=== PATIENT | male | born 1955 | race Caucasian/White ===

== ENCOUNTER 2020-08-05 10:51 | Emergency (ER) | payer MEDICARE, SELFPAY ==
[2020-08-05] VITALS (41 sets, daily range): BP systolic 87–120; BP diastolic 61–91; PULSE 57–82; RESP 15–30; TEMP 35.8; O2SAT 90–100
--- NOTE | ~2020-08-05 | XR_ITS ---
EXAMINATION: XR chest 2V DATE: 08/05/2020 11:42 INDICATION: Defibrillator discharge TECHNIQUE: Frontal and lateral views of the chest are obtained COMPARISON: 03/16/2019 FINDINGS: The lungs are free of acute opacities. There is no pleural effusion or pneumothorax. The ca rdiomediastinal silhouette is stable. A dual-lead cardiac pacemaker of the left chest wall ends with leads in expected locations. There is moderate thoracic spondylosis. IMPRESSION: 1. No acute cardiopulmonary abnormality. Reviewed, dictated and finalized at location A. LING TANK OPERATOR
--- NOTE | 2020-08-05 10:56 | ED.ARRPALP ---
HPI - Arrhythmia/Palpitations General Chief Complaint: Arrhythmia/Palpitations Stated Complaint: Defib. Shocking Patient Time Seen by Provider: 08/05/20 10:55 Source: patient History of Present Illness HPI narrative: 65-year-old male presents to emergency department after defibrillator has gone off multiple times. Patient states he was called yesterday by his boiler coverer helper's nurse, who stated patient's defibrillator went off twice yesterday. He was also informed by boiler coverer helper's staff that the defibrillator went off twice today. Patient states he did not feel the defibrillator go off yesterday, but he did feel the defibrillator go off today. He is currently asymptomatic. Related Data Home Medications Medication Instructions Recorded Confirmed allopurinol 08/05/20 atorvastatin 08/05/20 clonazepam 08/05/20 dicyclomine mg 08/05/20 losartan 08/05/20 metoprolol succinate PO 08/05/20 spironolactone 08/05/20 spironolactone 08/05/20 warfarin 08/05/20 08/05/20 Allergies Allergy/AdvReac Type Severity Reaction Status Date / Time No Known Allergies Allergy Verified 08/05/20 11:37 Review of Systems Review of Systems: Narrative: CONSTITUTIONAL: Denies fever, chills, or sweats. EYES: Denies visual changes, redness, or discharge. ENT: Denies rhinorrhea, congestion, sore throat, or otalgia. CARDIOVASCULAR: Denies chest pain, palpitations, or edema. RESPIRATORY: Denies cough or dyspnea. GASTROINTESTINAL: Denies abdominal pain, nausea, vomiting, or diarrhea. GENITOURINARY: Denies dysuria or hematuria. SKIN: Denies rash or itching. MUSCULOSKELETAL: Denies back pain, joint pain, or myalgia. NEUROLOGIC: Denies headache, numbness, dizziness, or weakness. PSYCHIATRIC: Denies anxiety or depression. All systems reviewed & are unremarkable except as noted in HPI and below (ROS) [facility] Family History Family History Father Family history of malignant neoplasm Family history of lung cancer Mother Family history of dementia Family history of malignant neoplasm of breast in first degree relative Grandparent Diabetes mellitus Social History Social History Smoking status: Never smoker Alcohol intake: current Gender identity (if verbalized by the patient): Male Exam Narrative: Exam Narrative: GENERAL: Well-appearing, well-nourished, and in no acute distress. HEAD: Normocephalic, atraumatic. EYES: PERRLA and EOMI. ENT: Nares clear, no rhinorrhea or epistaxis. Mucous membranes moist. NECK: Supple. CHEST: Clear to auscultation. No respiratory distress. Left chest defibrillator palpated HEART: Regular rate and rhythm. No murmur heard. Normal peripheral pulses. ABDOMEN: Soft, nontender, nondistended, normal active bowel sounds. EXTREMITIES: Normal range of motion. No edema. SKIN: Warm, dry, no rash. NEURO: No focal deficits. Alert and oriented x3. PSYCH: Normal mood and affect. Course Consultations Consultation #1: 12:30PM - discussed case with cardiology [employer], will evaluate the interrogation and discuss with physician 13:53 - discussed case with cardiology [employer] [place], patient needs to be evaluated by an frame straightener [id number] - discussed case with [facility] transfer line 1448 - discussed case with RACHAEL Tolentino, at [facility], accepts transfer. Will be a direct admit. 2015 - pt has a bed at [facility], will be direct admission. Vital Signs Vital signs: Vital Signs Temperature 35.8 C L 08/05/20 10:59 Pulse Rate 82 08/05/20 10:59 Respiratory Rate 19 08/05/20 10:59 Blood Pressure 120/91 H 08/05/20 10:59 Pulse Oximetry 97 08/05/20 10:59 Temperature 35.8 C L 08/05/20 10:59 Pulse Rate 57 L 08/05/20 19:38 Respiratory Rate 22 H 08/05/20 19:38 Blood Pressure 119/63 08/05/20 19:02 Pulse Oximetry 99 08/05/20 19:38 Transfer Transfered to: [facility] MDM - Arrhythmia/Pal
--- NOTE | 2020-08-05 11:08 | ECG_ITS ---
Measurements Intervals [place] Rate: 78 P: 92 TX: 273 QRS: -76 QRSD: 166 T: 7 QT: 420 QTc: 480 Interpretive Statements SINUS RHYTHM WITH FIRST DEGREE AV BLOCK MULTIFOCAL VENTRICULAR PREMATURE COMPLEXES RIGHT BUNDLE BRANCH BLOCK CONSIDER INFERIOR INFARCT, AGE INDETERMINATE BASELINE ARTIFACT- I, II, III, AVF, V3-V4 ABNORMAL ECG Electronically Signed On 08-05-2020 13:31:53 CLINICAL ACADEMIC ALLERGIST by Sherif Downing D.O.
--- NOTE | 2020-08-05 11:15 | PC.NURSE ---
Report to LINDA Lua, to continue care.
[2020-08-05 11:17] LABS: Basophils Absolute Auto 0.1 K/mm3 (0.0-0.1); Basophils Percent Auto 0.5 % (0.2-1.2); Eosinophils Absolute Auto 0.2 K/mm3 (0-0.3); Eosinophils Percent Auto 1.9 % (0-4.4); Hematocrit 37.8 % (42.0-52.0); Hemoglobin 13.9 g/dL (14.0-18.0); Immature Granulocyte Absolute 0.07 K/mm3 (0.00-0.031); Immature Granulocyte Percent A 0.7 % (0-0.5); Lymphocytes Absolute Auto 1.42 K/mm3 (0.9-3.2); Mean Corpuscular HGB Conc 36.8 g/dl (32-36); Mean Corpuscular Hemoglobin 36.8 pg (26-34); Monocytes Absolute Auto 0.7 K/mm3 (0.1-0.6); Monocytes Percent Auto 7.2 % (2.6-8.5); Neutrophils Absolute Auto 7.7 K/mm3 (1.3-6.7); Neutrophils Percent Auto 75.7 % (45.5-73.1); Platelet Count Result 217 k/mm3 (150-375); Red Blood Count 3.78 M/mm3 (4.6-6.20); Red Cell Distribution Width 12.5 % (11.5-14.5); White Blood Count 10.2 K/mm3 (4.5-10.0)
[2020-08-05 11:29] LABS: Alanine Aminotransferase 18 U/L (4-50); Albumin Level 4.7 g/dL (3.5-5.1); Alkaline Phosphatase 71 U/L (38-126); Anion Gap 14 mmol/L (8-16); Aspartate Amino Transferase 38 U/L (17-59); Bilirubin,Total 1.6 mg/dL (0.2-1.3); Blood Urea Nitrogen 17 mg/dL (9-20); Calcium 9.8 mg/dL (8.4-10.2); Carbon Dioxide 25 mmol/L (22-30); Chloride 102 mmol/L (98-107); Estimated CRCL calculation 85 ml/min; Estimated Glomerular Filt Rate > 60; Glucose 154 mg/dL (75-110); Potassium 3.8 mmol/L (3.4-5.0); Sodium 141 mmol/L (137-145)
[2020-08-05 11:33] LABS: INR 1.3; Prothrombin Time 17.1 Seconds (11.1-14.7)
[2020-08-05 11:42] LABS: Troponin I 0.121 ng/mL (0.000-0.034)
--- NOTE | 2020-08-05 16:22 | PC.NURSE ---
Pt complaining of stretcher being uncomfortable and stating he will need a ride home from other hospital if he is transferred. Pt updated on plan of care by MD and is now agreeing with plan to transfer to to either [facility] or another hospital to see an dairy quality assurance officer for his defibrillator. Patient provided with pillows and repositioned in bed. Call light in reach.
--- NOTE | 2020-08-05 20:21 | PC.NURSE ---
made contact with [employer] and [employer] to transfer patient to [place]. both companies declined. contacted [facility] [phone]
--- NOTE | 2020-08-05 22:42 | PC.NURSE ---
contacted [facility] 10 minutes
--- NOTE | 2020-08-05 22:58 | PC.NURSE ---
[employer] has made it here.
--- NOTE | 2020-08-06 00:55 | PC.NURSE ---
Nurse from [facility] called to get report on this patient at [phone]. I gave her report at that time.
== END 2020-08-05 23:08 | disposition short-term general hospital (02) ==
PROVIDERS: Emergency Provider Emergency Medicine; PCP Family Medicine
DX: R94.31 Abnormal electrocardiogram [ECG] [EKG] (principal); Z95.810 Presence of automatic (implantable) cardiac defibrillator
CPT/HCPCS: 36415; 71046; 80053; 84484; 85025; 85610; 93005; 99284; 99285

== ENCOUNTER 2021-09-10 09:33 | Outpatient (CLI) | payer MEDICARE, SELFPAY | END 2021-09-10 09:34 | disposition home or self-care (01) | PROVIDERS: PCP Family Medicine; Visit Provider Internal Medicine Gastroenterology | DX: K50.90 Crohn's disease, unspecified, without complications (principal); R19.7 Diarrhea, unspecified | CPT/HCPCS: 87324; 87493 ==

== ENCOUNTER 2021-09-30 01:04 | Day surgery (SDC) | payer MEDICARE, SELFPAY ==
[2021-09-17 12:15] VITALS: BMI 36.0
[2021-09-30] MEDS: LACTATED RINGERS 1,000 ML 150 ML IV CONT (09:10)
[2021-09-30 09:18] VITALS: BP 142/81; PULSE 96; RESP 18; TEMP 36.2; O2SAT 98
[2021-09-30 09:27] LABS: INR 1.1; Prothrombin Time 13.9 Seconds (11.1-14.7)
--- NOTE | 2021-09-30 10:16 | WPDANESEPPF ---
Anes - Initial Pre Proc Eval Procedure: Operation Date: 09/30/21 10:30 Proposed Procedures p Colonoscopy - Nicola Art MD Date/Time: 09/30/21 10:16 Surgeon: Nicola Art MD Pre Op Diagnosis: ulcerative colitis Patient Data Age: 66 Gender: M Height: 1.78 m Weight: 114.6 kg Last Vital Signs Temp 36.2 C L 09/30/21 09:18 Pulse 96 09/30/21 09:18 Resp 18 09/30/21 09:18 BP 142/81 H 09/30/21 09:18 Pulse Ox 98 09/30/21 09:18 Allergies Allergy/AdvReac Type Severity Reaction Status Date / Time No Known Allergies Allergy Verified 09/30/21 09:14 Home Medications Medication Instructions Recorded Confirmed Type allopurinol 100 mg PO DAILY 08/05/20 09/30/21 History atorvastatin 20 mg PO DAILY 08/05/20 09/30/21 History clonazepam 1 mg PO PRN PRN 08/05/20 09/30/21 History metoprolol succinate 25 mg PO DAILY 08/05/20 09/30/21 History spironolactone 25 mg PO DAILY 08/05/20 09/30/21 History loperamide 2 mg capsule 2 mg PO Q6H PRN 03/16/21 09/30/21 History sacubitril 24 mg-valsartan 26 mg 1 tablet PO BID 03/16/21 09/30/21 History tablet cyanocobalamin (vitamin B-12) 500 500 mcg PO DAILY 09/09/21 09/30/21 History mcg tablet adalimumab [Humira Pen] 40 mg SUBCUT WEEKLY 09/17/21 09/30/21 History metformin 500 mg PO DAILY 09/17/21 09/30/21 History prednisone 5 mg PO USEASDIRECTD 09/17/21 09/30/21 History sotalol 120 mg PO BID 09/17/21 09/30/21 History vitamin A-vitamin C-vit E-min 1 tablet PO DAILY 09/17/21 09/30/21 History [Ocuvite] warfarin 4 mg PO DAILY 09/17/21 09/30/21 History dicyclomine 10 mg capsule 10 mg PO BID PRN #60 cap 09/21/21 09/30/21 Rx Laboratory Tests 09/30/21 09:10 PT 13.9 Seconds Seconds (11.1-14.7) INR 1.1 Patient hx anesthesia problems: none Family hx anesthesia problems: none Results Review: All pre-operative results and documents have been reviewed as part of the pre-operative evaluation. [facility] Past Medical History Medical History (Updated 09/30/21 @ 10:23 by Arnaldo Keita DO) Atrial fibrillation CHF (congestive heart failure) Crohn's disease CVA (cerebral vascular accident) Diabetes type 2, controlled History of ventricular fibrillation ICD (implantable cardioverter-defibrillator) in place Seizure Family History Family History Father Family history of malignant neoplasm Family history of lung cancer Mother Family history of dementia Family history of malignant neoplasm of breast in first degree relative Grandparent Diabetes mellitus Social History Social History Smoking status: Never smoker Alcohol intake: current Substance use: never Substance use type: does not use Living arrangements: with family Gender identity (if verbalized by the patient): Male Spiritual care concerns: No Anes - Eval Final PreProcedure Day of Procedure 09/30/21 10:16 Patient weight: obese Heart: regular rate and rhythm Lungs: clear to auscultation and normal air movement Airway: Mallampati scale Neurological: alert and oriented Last oral intake: >/= 8 hours ASA classification: IV Emergent: no Anesthetic plan: proceed Anesthesia type and monitoring: general GIVS and standard monitoring Results Review: All pre-operative results and documents have been reviewed as part of the pre-operative evaluation. Informed Consent: The patient's anesthetic plan and its attendant risks and benefits were discussed with the patient/family/POA. Questions were solicited and answers provided to the satisfaction of the patient/family/POA.
--- NOTE | 2021-09-30 10:20 | WPDHPUPDATE1 ---
History and Physical Update Update Date/Time: 09/30/21 10:20 Diarrhea has improved with implementation of therapy started in the office visit 09/09/2021. Additionally patient is held metformin because of the diarrhea. Over last 1 week he has had normal stools. History and Physical has been reviewed, including an updated exam of the patient. There are NO changes in the patient's condition. Risks, benefits, and alternatives have been discussed and questions answered. Patient agrees to proceed with procedure.
[2021-09-30 11:08] VITALS: BP 99/63; PULSE 79; RESP 25; O2SAT 93
[2021-09-30 11:18] VITALS: BP 118/74; PULSE 72; RESP 27; O2SAT 97
[2021-09-30 11:28] VITALS: BP 143/85; PULSE 68; RESP 24; O2SAT 95
== END 2021-09-30 12:00 | disposition home or self-care (01) ==
PROVIDERS: PCP Family Medicine; Visit Provider Internal Medicine Gastroenterology
PROC: 0DJD8ZZ Inspection of Lower Intestinal Tract, Via Natural or Artificial Opening Endoscopic (ICD-10-PCS; CPT 45378; principal; 2021-09-30 10:30)
DX: K50.90 Crohn's disease, unspecified, without complications (principal); K60.3 Anal fistula
CPT/HCPCS: 45380; 36415; 85610; 88305; J2704; J7120

== ENCOUNTER 2022-03-16 10:22 | Outpatient (CLI) | payer MEDICARE, SELFPAY | END 2022-03-16 10:23 | disposition home or self-care (01) | LOC: ANHLAB 10:26 | PROVIDERS: PCP Family Medicine; Visit Provider Internal Medicine Gastroenterology | DX: K50.90 Crohn's disease, unspecified, without complications (principal) | CPT/HCPCS: 99199; 36415; 80145 ==

== ENCOUNTER 2023-08-23 14:19 | Outpatient (CLI) | payer MEDICARE, MEDICAID, SELFPAY ==
[2023-08-23 16:05] LABS: Toxigenic C. Diff NEGATIVE (NEGATIVE)
[2023-08-31 21:37] LABS: Calprotectin, Stool 73 mcg/g
== END 2023-08-23 14:20 | disposition home or self-care (01) ==
LOC: ANHLAB 14:22
PROVIDERS: PCP Family Medicine; Visit Provider Internal Medicine Gastroenterology
DX: R19.7 Diarrhea, unspecified (principal); K50.90 Crohn's disease, unspecified, without complications
CPT/HCPCS: 83993; 87045; 87427; 87449; 87493

== ENCOUNTER 2023-12-09 14:05 | Outpatient (CLI) | payer MEDICARE, MEDICAID, SELFPAY ==
--- NOTE | ~2023-12-09 | US_ITS ---
EXAMINATION: US arterial ankle brachial ind DATE: 12/09/2023 14:59 INDICATION: Peripheral vascular disease, unspecified. TECHNIQUE: Segmental pressures and plethysmographic and Doppler waveforms of the brachial and lower e xtremity arteries were obtained. COMPARISON: None. FINDINGS: Right and left brachial artery pressures of 92 mm Hg and 98 mm Hg, respectively, are concordant (norm al difference <= 30 mmHg). The right ankle-brachial index (JACOBY) could not be measured due to inability to cuff occlude the arter ies (normal >= 0.9-1.0). The right great toe-brachial index (TBI) is 0.59 (normal >= 0.65). Arterial Doppler waveforms are at least biphasic at the ankle. The left JACOBY could not be measured due to inability to cuff occlude the arteries. The left TBI is 0.4 9. Arterial Doppler waveforms are at least biphasic at the ankle. IMPRESSION: 1. Decreased TBIs and nondiagnostic ABIs, consistent with arterial occlusive disease. Reviewed, dictated and finalized at location E. IFIED BENCH JEWELER TECHNICIAN IMPRESSION: 1. Decreased TBIs and nondiagnostic ABIs, consistent with arterial occlusive di sease.
== END 2023-12-09 14:06 | disposition home or self-care (01) ==
PROVIDERS: PCP Family Medicine; Visit Provider Orthopaedic Surgery
DX: I73.9 Peripheral vascular disease, unspecified (principal); G60.0 Hereditary motor and sensory neuropathy
CPT/HCPCS: 93922

== ENCOUNTER 2024-10-25 21:59 | Inpatient (IN) | payer MEDICARE, SELFPAY ==
--- NOTE | ~2024-10-25 | XR_ITS ---
CHEST RADIOGRAPH CLINICAL HISTORY: defibrillator went off twice . COMPARISON: 08/05/2020 TECHNIQUE: Single portable view of the chest. FINDINGS The left mid lung is partially obscured due to pacemaker/AICD generator. Wires project over the right atrium, coronary sinus and right ventricle. The device is different from the previous device in 2020 and therefore change in wire configuration c annot be described. The remainder of the cardiomediastinal silhouette is enlarged but otherwise unremarkable. Increased interstitial markings are identified bilaterally, findings suggesting mild pulmonary vascul ar congestion. Coarse interstitial lung markings are detected bilaterally, an interval change from 2020. IMPRESSION: Mild pulmonary vascular congestion with coarse interstitial lung markings. No focal infiltrate or eff usion. Reviewed, dictated and finalized at location A. TECHNICIAN IMPRESSION: Mild pulmonary vascular congestion with coarse interstitial lung markings. No f ocal infiltrate or effusion.
[2024-10-25 22:02] VITALS: BP 104/66; PULSE 65; RESP 22; TEMP 36.6; O2SAT 100
--- NOTE | 2024-10-25 22:18 | ECG_ITS ---
Test Date: 2024-10-25 22:25:29 Measurements Intervals [place] Rate: 66 P: 78 MN: 165 QRS: 254 QRSD: 172 T: 80 QT: 493 QTc: 517 Interpretive Statements ELECTRONIC VENTRICULAR PACEMAKER ABNORMAL RHYTHM ECG No previous ECG available for comparison Electronically Signed On 10-26-2024 11:54:39 ICU STAFF NURSE by Yana Gonzales
[2024-10-25 22:29] VITALS: BP 113/64; PULSE 63; PULSE 64; RESP 20; TEMP 36.3; O2SAT 93
[2024-10-25 22:38] LABS: Eosinophils Absolute Auto 0.2 K/mm3 (0-0.3); Eosinophils Percent Auto 5.9 % (0-4.4); Hematocrit 35.1 % (42.0-52.0); Hemoglobin 12.4 g/dL (14.0-18.0); Immature Granulocyte Absolute 0.01 K/mm3 (0.00-0.031); Immature Granulocyte Percent A 0.2 % (0-0.5); Immature Platelet Fraction Pct 3.9 % (0.9-11.2); Lymphocytes Absolute Auto 0.99 K/mm3 (0.9-3.2); Lymphocytes Percent Auto 24.4 % (18.3-44.2); Mean Corpuscular HGB Conc 35.3 g/dl (32-36); Mean Corpuscular Hemoglobin 39.1 pg (26-34); Mean Corpuscular Volume 110.7 fl (80-100); Mean Platelet Volume 10.5 fl (7.4-10.4); Monocytes Absolute Auto 0.3 K/mm3 (0.1-0.6); Monocytes Percent Auto 7.9 % (2.6-8.5); Neutrophils Absolute Auto 2.5 K/mm3 (1.3-6.7); Neutrophils Percent Auto 60.6 % (45.5-73.1); Platelet Count Result 118 k/mm3 (150-375); Red Blood Count 3.17 M/mm3 (4.6-6.20); Red Cell Distribution Width 15.1 % (11.5-14.5); White Blood Count 4.1 K/mm3 (4.5-10.0)
--- NOTE | 2024-10-25 22:42 | PC.NURSE ---
Patient has [employer] defibrillator. Defibrillator interrogated.
[2024-10-25 22:47] LABS: Alanine Aminotransferase 29 U/L (6-50); Albumin Level 3.9 g/dL (3.5-5.1); Alkaline Phosphatase 81 U/L (38-126); Anion Gap 7 mmol/L (4-12); Aspartate Amino Transferase 42 U/L (17-59); Bilirubin,Total 0.8 mg/dL (0.2-1.3); Blood Urea Nitrogen 19 mg/dL (9-20); Carbon Dioxide 27 mmol/L (22-30); Chloride 103 mmol/L (98-107); Estimated CRCL calculation 87 ml/min; Estimated Glomerular Filt Rate > 60; Glucose 132 mg/dL (65-110); Lipase 329 U/L (23-300); Potassium 3.8 mmol/L (3.4-5.0); Sodium 137 mmol/L (137-145)
[2024-10-25 22:55] LABS: INR 2.2; Prothrombin Time 24.9 Seconds (11.1-14.7)
[2024-10-25 22:56] LABS: Partial Thromboplastin Time 32.3 Seconds (22.3-36.8)
[2024-10-25 22:59] LABS: Troponin I 0.018 ng/mL (0.000-0.034)
[2024-10-26] VITALS (18 sets, daily range): BP systolic 89–121; BP diastolic 49–69; PULSE 60–89; RESP 16–20; TEMP 36.3–36.8; O2SAT 18–100; BMI 27.6
--- NOTE | 2024-10-26 | ECHO_ITS ---
Patient Info Name: Дмитрий Hernandes Age: 69 years : 1955 Gender: Male Ht: 69 in Wt: 186 lbs BSA: 2.04 m2 HR: 60 bpm BP: 116 / 63 mmHg Heart Rhythm: Sinus Rhythm Technical Quality: Good Exam Date: 10/26/2024 8:02 AM Exam Location: Echo Lab Patient Status: Inpatient Admit Date: 10/26/2024 Staff Ordering Physician: Juanito Alonso APRN Roller Turner: America Harley RDCS Attending Provider: Chayo Bryant MD Referring Physician: Gavin COYNE; Exam Type: CA echo dop color flow w con Study Info Indications - defibrillator fired x3 Complete two-dimensional, color flow and Doppler transthoracic echocardiogram is performed with contrast to opacify the left ventricle and to improve the deliniation of the left ventricle endocardial borders. Contrast/Agitated Saline Contrast/Ag. Saline: Definity Amount: 3.00 ml Administered By: Ameirca Harley RDCS Existing IV Access: Yes IV Access Condition: patent with no signs of infiltration Summary 1. Definity contrast administered improved wall motion interpretation. 2. Basal to apical posterior/inferior wall is severely hypokinetic to akinetic. 3. Left ventricular chamber dimension is moderately enlarged. 4. The left ventricular diastolic function is abnormal. 5. Left ventricular systolic function is severely globally reduced, estimated at 30-35%. 6. E/e' 16 is elevated. 7. Linear artifact in right ventricle suggestive of catheter(s), pacemaker lead(s), or ICD lead(s). 8. Left atrial chamber dimension is severely enlarged. 9. Right atrial chamber dimension is moderately enlarged. 10. Linear artifact in the right atrium suggestive of catheter(s), pacemaker lead(s), or ICD lead(s). 11. There is moderate aortic valve sclerosis. 12. The mitral valve has mildly calcified annulus. 13. There is mild mitral valve regurgitation. 14. No pulmonary hypertension, estimated pulmonary arterial systolic pressure is 22 mmHg. 15. There is trace pulmonic regurgitation. Left Ventricle E/e' 16 is elevated. Left ventricular systolic function is severely globally reduced, estimated at 30-35%. Definity contrast administered improved wall motion interpretation. Basal to apical posterior/inferior wall is severely hypokinetic to akinetic. Left ventricular chamber dimension is moderately enlarged. The left ventricular diastolic function is abnormal. Right Ventricle Linear artifact in right ventricle suggestive of catheter(s), pacemaker lead(s), or ICD lead(s). Right ventricular systolic function is normal and with normal TAPSE 2.4 cm. Right ventricular chamber dimension is normal. Left Atria Left atrial chamber dimension is severely enlarged. Right Atria Linear artifact in the right atrium suggestive of catheter(s), pacemaker lead(s), or ICD lead(s). Right atrial chamber dimension is moderately enlarged. Aortic Valve The aortic valve is trileaflet. There is moderate aortic valve sclerosis. There is no aortic valve stenosis. There is no aortic valve regurgitation. Pulmonic Valve There is trace pulmonic regurgitation. Mitral Valve The mitral valve has mildly calcified annulus. There is no mitral valve stenosis. There is mild mitral valve regurgitation. Tricuspid Valve There is no tricuspid valve regurgitation. No pulmonary hypertension, estimated pulmonary arterial systolic pressure is 22 mmHg. Pericardium/Pleural There is no pericardial effusion. Inferior Vena Cava Normal inferior vena cava with >50% collapse upon inspiration consistent with normal right atrial pressure, 5 mmHg. Aorta The aortic root size at the sinus of Valsalva is normal. Left Ventricular Outflow Tract Name Value Normal LVOT 2D LVOT Diameter 2.18 cm LVOT Doppler LVOT Peak Gradient 3 mmHg LVOT Mean Gradient 1 mmHg LVOT VTI 15.90 cm LVOT VTI/AV VTI Ratio 0.51 LVOT Stroke Volume 59.27 ml LVOT CO 3.52 l/min LVOT CI 1.72 L/min/m2 Pulmonic Valve Name Value Normal RVOT Doppler RVOT Peak Gradient 1 mmHg PV Doppler PV Peak Gradient 3 mmHg Mitral Valve Name Value Normal MV Doppler MV Decel [place] 318.42 cm/s2 MV PHT 0 s MV Area (PHT) 3.70 cm2 4.00-5.00 MV Diastolic Function MV E Peak Velocity 65.36 cm/s MV A Peak Velocity 50.01 cm/s MV E/A 1.31 MV Decel Time 0 s MV Annular TDI MV E/e' (Septal) 18.67 <=8.00 MV E/e' (Lateral) 15.19 <=8.00 MV E/e' (Average) 16.93 Tricuspid Valve Name Value Normal TV Regurgitation Doppler TR Peak Velocity 208.63 cm/s TR Peak Gradient 17 mmHg Estimated PAP/RSVP RA Pressure 5 mmHg <=5 PA Systolic Pressure 22 mmHg <36 RV Systolic Pressure 22 mmHg <36 Aorta Name Value Normal Ascending Aorta Ao Root Diameter (MM) 3.77 cm Ao Root Diam Index (MM) 1.84 cm/m2 Aortic Valve Name Value Normal AV Doppler AV Peak Velocity 159.72 cm/s AV Peak Gradient 10 mmHg AV Mean Gradient 5 mmHg AV VTI 31.24 cm AV Area (Cont Eq VTI) 1.90 cm2 >=3.00 AV Area (Cont Eq Lazarus) 2.08 cm2 AV Regurgitation 2D LVOT Area 3.73 cm2 Ventricles Name Value Normal LV Dimensions 2D/MM IVS Diastolic Thickness (2D) 1.24 cm 0.60-1.00 LVID Diastole (2D) 6.08 cm 4.20-5.80 LVIW Diastolic Thickness (2D) 0.96 cm 0.60-1.00 LVID Systole (2D) 5.06 cm 2.50-4.00 LVOT Diameter 2.18 cm LV Mass (2D Cubed) 285.69 g 88.00-224.00 LV Mass Index (2D Cubed) 0.01 g/cm2 0.00-0.01 Relative Wall Thickness (2D) 0.32 LV Fractional Shortening/Ejection Fraction 2D/MM LV Fractional Shortening (2D) 17 % 25-43 LV EF (2D Teicholz) 35 % 52-72 LV Diastolic Volume (4C MOD) 155.48 ml LV EF (4C MOD) 25 % LV Diastolic Volume (2C MOD) 118.35 ml LV EF (2C MOD) 35 % LV Diastolic Volume (BP MOD) 137.49 ml 62.00-150.00 LV Diastolic Volume Index (BP MOD) 0.07 l/m2 0.03-0.07 LV Systolic Volume (BP MOD) 97.57 ml 21.00-61.00 LV Systolic Volume Index (BP MOD) 0.05 l/m2 0.01-0.03 LV EF (BP MOD) 29 % 52-72 LV Diastolic Length (4C) 9.20 cm LV Systolic Length (4C) 8.52 cm LV Stroke Volume (4C MOD) 39.17 ml Atria Name Value Normal LA Dimensions LA Dimension (MM) 5.39 cm 3.00-4.10 LA Volume (4C A-L) 130.40 ml LA Volume (BP A-L) 113.77 ml RA Dimensions RA Area (4C) 26.12 cm2 <=18.00 Report Signatures
--- NOTE | 2024-10-26 00:07 | ED_ITS ---
HPI - General Adult General Chief complaint: Unspecified Stated complaint: AICD SHOCK X 2 Time Seen by Provider: 10/25/24 22:33 History of Present Illness HPI narrative: Patient is a 69-year-old male who presents to the emergency department this evening stating that he is D fib shocked him twice this evening. Patient tracks happened around 8:00 p.m.. He states that when the shocks happened he had no symptoms, specifically no chest pain or shortness of breath, no nausea or vomiting. 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 Patient is currently denying any symptoms including chest pain or shortness of breath. Denies any recent URI illness. No additional symptoms or concerns at this time. Related Data Home Medications ?Medication ?Instructions ?Recorded ?Confirmed ?Last Taken ?Type atorvastatin 20 mg tablet 20 mg PO DAILY 08/05/20 08/23/24 Unknown History clonazepam 1 mg tablet 1 mg PO PRN PRN Seizure Activity 08/05/20 08/23/24 Unknown History cyanocobalamin (vitamin B-12) 500 500 mcg PO DAILY 09/09/21 08/23/24 Unknown History mcg tablet infliximab-abda 100 mg intravenous 100 mg IV [id number] 02/14/23 08/23/24 Unknown History solution bismuth subsalicylate 262 mg/15 mL 2 mg PO QID PRN Diarrhea 03/17/23 08/23/24 Unknown History oral suspension clobazam 10 mg tablet 30 mg PO QHS 06/15/23 08/23/24 Unknown History sotalol 120 mg tablet 120 mg PO BID 07/22/23 08/23/24 Unknown History metoprolol succinate 50 mg 50 mg PO DAILY 08/18/23 08/23/24 Unknown History tablet,extended release 24 hr sacubitril 24 mg-valsartan 26 mg 1 tablet PO DAILY 02/15/24 08/23/24 Unknown History tablet (Entresto) Allergies Allergy/AdvReac Type Severity Reaction Status Date / Time No Known Allergies Allergy Verified 10/25/24 22:13 Review of Systems 2 Review of Systems: All systems are reviewed and are negative unless stated otherwise in the HPI. 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 Charcot Dawna Tooth muscular atrophy Obesity custodial (current) use of anticoagulants Deficiency of other specified B group vitamins Major depressive disorder in full remission Morbid (severe) obesity due to excess calories Other seizures Unspecified systolic (congestive) heart failure Other sequelae of cerebral infarction Hyperlipidemia, unspecified Essential (primary) hypertension Left knee DJD Right knee DJD Diabetes type 2, controlled CHF (congestive heart failure) ICD (implantable cardioverter-defibrillator) in place History of ventricular fibrillation Atrial fibrillation Seizure Diarrhea DJD (degenerative joint disease) Crohn's disease Family History Family History Father Family history of malignant neoplasm Family history of lung cancer Mother Family history of dementia Family history of malignant neoplasm of breast in first degree relative Grandparent Diabetes mellitus Social History Social History Smoking status: Never smoker Alcohol intake: current Alcohol use details: social Substance use: never Substance use type: does not use Do You Feel Safe in your Home?: Yes Lack of Transportation: No Lack of Food: Never True Current Housing: I Have Housing Concerned About Future Housing: No Difficulty Paying Gas/Electric Bills: No Difficulty Paying for Meds: No Currently Unemployed: No Education: Trade/Vocational Certificate Difficulty w/ Childcare or Family Care: No Living arrangements: with family Occupation/Education: retired Gender identity (if verbalized by the patient): Male Sexual Orientation (if Verbalized by the Patient): Straight or Heterosexual Spiritual care concerns: No Exam 2 Narrative: General: Alert, awake, afebrile, in no acute distress. HEENT: PERRL, no rhinorrhea, no post nasal drip, oropharynx clear. Neck: Trachea midline, no JVD, no lymphadenopathy. Cardiovascular: Regular rate and rhythm, no murmurs, rubs or gallops, no peripheral edema. Respiratory: Clear to auscultation bilaterally, no tachypnea, no wheezing, no rhonchi, no rubs, no respiratory distress. Abdomen: Soft, nontender, nondistended, no rebound, no guarding, no peritoneal signs. Musculoskeletal: No joint swelling or deformity, normal muscle tone. Skin: No rashes or petechia, no signs of infection. Psychiatric: Alert and oriented, normal behavior and judgment for situation. Neurological: Alert and oriented to person, place, and time. Follows all commands. No focal deficits, speech is clear and fluent. Course Vital Signs Vital signs: Vital Signs Temperature 97.9 F 10/25/24 22:02 Pulse Rate 65 10/25/24 22:02 Respiratory Rate 22 H 10/25/24 22: Blood Pressure 104/66 10/25/24 22:02 Pulse Oximetry 100 10/25/24 22:02 Oxygen Delivery Room Air 10/25/24 22:02 Temperature 97.3 F L 10/25/24:29 Pulse Rate 63 10/25/24: Respiratory Rate 20 10/25/24 22: Blood Pressure 113/64 10/25/24 22:29 Pulse Oximetry 93 10/25/24 22:29 Oxygen Delivery Room Air 10/25/24 22:02 Medical Decision Making [facility] Narrative Medical decision making narrative: The patient was evaluated by myself in the emergency department. History is obtained from patient who is an independent historian and physical exam was performed. External medical records were reviewed at this time. IV was established and pertinent tests were ordered. EKG was obtained which revealed a paced rhythm at a rate of 66 beats per minute, good capture, negative Sgarbossa. EKG was independently interpreted by me and is currently pending official cardiology read. Laboratory results obtained revealing a white blood cell count of 4.1 otherwise unremarkable. Initial troponin negative. Imaging studies obtained included CXR which was independently interpreted by me revealin. Mild pulmonary vascular congestion with coarse interstitial lung markings. No focal infiltrate or effusion. Differential diagnosis considerations include arrhythmia, acute coronary syndrome, dehydration, acute viral illness, electrolyte patients. Comorbidities impacting this visit include history of congestive heart failure, hypertension, hyperlipidemia, diabetes mellitus and atrial fibrillation. I have evaluated and discussed social determinants of health with the patient that could potentially impact subsequent diagnosis and treatment plans. On repeat assessment of the patient, reevaluation revealed that the patient is doing well and is in no acute distress. Patient symptoms have remained stable since he arrived to our emergency department. Repeat vital signs were all reviewed and noted to be stable. Differential diagnosis and treatment plan were discussed with the patient at bedside. Patient agrees with discussion and after shared medical decision making agrees with admission. All questions were answered to the patient's satisfaction. Case was discussed with the on-call [employer]OM SUPERVISOR Bashir @ [phone] and he accepted admission to our IMU with Cardiology consultation. Vital Signs Vital Signs: Vital Signs Temperature 97.9 F 10/25/24 22:02 Pulse Rate 65 10/25/24 22:02 Respiratory Rate 22 H 10/25/24 22:02 Blood Pressure 104/66 10/25/24 22:02 Pulse Oximetry 100 10/25/24 22:02 Oxygen Delivery Room Air 10/25/24 22:02 Temperature 97.3 F L 10/25/24 22:29 Pulse Rate 63 10/25/24 22:29 Respiratory Rate 20 10/25/24 22:29 Blood Pressure 113/64 10/25/24 22:29 Pulse Oximetry 93 10/25/24 22:29 Oxygen Delivery Room Air 10/25/24 22:02 Lab Data 10/25/24 22:29 10/25/24 22:29 Labs: Lab Results 10/25/24 Range/Units 22:29 WBC 4.1 L (4.5-10.0) K/mm3 RBC 3.17 L (4.6-6.20) M/mm3 Hgb 12.4 L (14.0-18.0) g/dL Hct 35.1 L (42.0-52.0) % MCV 110.7 H (80-100) fl MCH 39.1 H (26-34) pg MCHC 35.3 (32-36) g/dl RDW 15.1 H (11.5-14.5) % Plt Count 118 L (150-375) k/mm3 MPV 10.5 H (7.4-10.4) fl Immature Gran % (Auto) 0.2 (0-0.5) % Neut % (Auto) 60.6 (45.5-73.1) % Lymph % (Auto) 24.4 (18.3-44.2) % [place] % (Auto) 7.9 (2.6-8.5) % Eos % (Auto) 5.9 H (0-4.4) % Baso % (Auto) 1.0 (0.2-1.2) % Lymph # (Auto) 0.99 (0.9-3.2) K/mm3 [place] # (Auto) 0.3 (0.1-0.6) K/mm3 Eos # (Auto) 0.2 (0-0.3) K/mm3 Baso # (Auto) 0.0 (0.0-0.1) K/mm3 Abs Immat Gran (auto) 0.01 (0.00-0.031) K/mm3 Absolute Neuts (auto) 2.5 (1.3-6.7) K/mm3 Absolute Nucleated RBC 0.000 (0.0-0.012) K/mm3 Nucleated RBC % 0.0 (0.0-0.2) % % Immature Plt Fraction 3.9 (0.9-11.2) % PT 24.9 H (11.1-14.7) Seconds INR 2.2 APTT 32.3 (22.3-36.8) Seconds Sodium 137 (137-145) mmol/L Potassium 3.8 (3.4-5.0) mmol/L Chloride 103 (98-107) mmol/L Carbon Dioxide 27 (22-30) mmol/L Anion Gap 7 (4-12) mmol/L BUN 19 (9-20) mg/dL Creatinine 0.67 L (0.7-1.3) mg/dL Estim Creat Clear Calc 87 ml/min Estimated GFR > 60 (59 - ) Glucose 132 H (65-110) mg/dL Calcium 9.0 (8.4-10.2) mg/dL Total Bilirubin 0.8 (0.2-1.3) mg/dL AST 42 (17-59) U/L ALT 29 (6-50) U/L Alkaline Phosphatase 81 (38-126) U/L Troponin I 0.018 (0.000-0.034) ng/mL Total Protein 7.0 (6.3-8.2) g/dL Albumin 3.9 (3.5-5.1) g/dL Lipase 329 H (23-300) U/L Discharge Plan Discharge Clinical Impression: Shockable cardiac rhythm detected by automated external defibrillator, Arrhythmia Patient Disposition: Still a Patient Condition: Stable Patient Language: Peruvian Prescriptions: No Action sotalol 120 mg Tablet 120 mg PO BID Entresto 24-26 mg tablet 1 tablet PO DAILY cyanocobalamin (vitamin B-12) 500 mcg tablet 500 mcg PO DAILY metoprolol succinate 50 mg tablet extended release 24 hr 50 mg PO DAILY ipratropium bromide 42 mcg (0.06 %) spray,non-aerosol 2 spray intranasal BID Qty: 15 5RF Rx Instructions: administer into each nostril infliximab-abda 100 mg recon soln 100 mg IV [id number] Rx Instructions: every 8 weeks bismuth subsalicylate 262 mg/15 mL suspension 2 mg PO QID PRN (Reason: Diarrhea) clobazam 10 mg tablet 30 mg PO QHS atorvastatin 20 mg tablet 20 mg PO DAILY clonazepam 1 mg tablet 1 mg PO PRN PRN (Reason: Seizure Activity) tamsulosin 0.4 mg capsule 0.4 mg PO DAILY Qty: 90 1RF azathioprine 50 mg tablet 50 mg PO BID 90 Days Qty: 180 3RF Jardiance 10 mg tablet 5 mg PO QAM Qty: 45 1RF dicyclomine 10 mg capsule 10 mg PO BID Qty: 60 5RF allopurinol 100 mg tablet 100 mg PO DAILY Qty: 90 1RF warfarin 4 mg tablet 4 mg PO DAILY 90 Days Qty: 90 3RF Follow-up/Referrals: Willie Zimmerman MD [Primary Care Provider] - Time of Disposition: 00:13
--- NOTE | 2024-10-26 02:19 | ADMGEN ---
This patient, Дмитрий Hernandes, was admitted to IMU Room 206-02. Patient/family oriented to hospital policies and general routines including ID bracelet, bed and alarms, visiting hours, pain management, procedures, bathroom and other care routines, personal items, smoking policy, room service/diet, and visiting hours. Information on how to activate the Rapid Response Team has been discussed. Patient/Family are encouraged to report perceived risks to care and to ask questions if they do not understand what they are told or what they should do.
[2024-10-26 03:52] LABS: Troponin I 0.022 ng/mL (0.000-0.034)
[2024-10-26 07:15] LABS: Basophils Percent Auto 0.8 % (0.2-1.2); Eosinophils Absolute Auto 0.2 K/mm3 (0-0.3); Eosinophils Percent Auto 5.4 % (0-4.4); Hematocrit 34.9 % (42.0-52.0); Hemoglobin 12.3 g/dL (14.0-18.0); Immature Granulocyte Absolute 0.01 K/mm3 (0.00-0.031); Immature Granulocyte Percent A 0.3 % (0-0.5); Lymphocytes Absolute Auto 0.92 K/mm3 (0.9-3.2); Lymphocytes Percent Auto 26.1 % (18.3-44.2); Mean Corpuscular HGB Conc 35.2 g/dl (32-36); Mean Corpuscular Hemoglobin 39.3 pg (26-34); Mean Corpuscular Volume 111.5 fl (80-100); Mean Platelet Volume 10.2 fl (7.4-10.4); Monocytes Absolute Auto 0.3 K/mm3 (0.1-0.6); Monocytes Percent Auto 8.2 % (2.6-8.5); Neutrophils Absolute Auto 2.1 K/mm3 (1.3-6.7); Neutrophils Percent Auto 59.2 % (45.5-73.1); Platelet Count Result 110 k/mm3 (150-375); Red Blood Count 3.13 M/mm3 (4.6-6.20); Red Cell Distribution Width 15.1 % (11.5-14.5); White Blood Count 3.5 K/mm3 (4.5-10.0)
[2024-10-26 07:25] LABS: Albumin Level 3.9 g/dL (3.5-5.1); Anion Gap 4 mmol/L (4-12); Blood Urea Nitrogen 14 mg/dL (9-20); Calcium 8.8 mg/dL (8.4-10.2); Carbon Dioxide 31 mmol/L (22-30); Chloride 104 mmol/L (98-107); Estimated CRCL calculation 93 ml/min; Estimated Glomerular Filt Rate > 60; Glucose 87 mg/dL (65-110); Magnesium 1.8 mg/dL (1.6-2.3); Phosphorus 3.6 mg/dL (2.5-4.5); Potassium 3.9 mmol/L (3.4-5.0); Sodium 139 mmol/L (137-145)
[2024-10-26 07:28] LABS: INR 2.2; Prothrombin Time 25.1 Seconds (11.1-14.7)
[2024-10-26 07:39] LABS: Macrocytosis 2+ (NORMAL); Platelet Estimate Decreased (Adequate); Schistocytes None Seen
[2024-10-26 07:40] LABS: Troponin I 0.026 ng/mL (0.000-0.034)
[2024-10-26] MEDS: PERFLUTREN LIPID MICROSPHERES 1.5 ML VIAL DILUTED TO 10 ML TOTAL VOLUME IV PUSH (08:20)
--- NOTE | 2024-10-26 08:20 | P.CONCA_ITS ---
Assessment and Plan Assessment and plan (1) Acute on chronic systolic heart failure: Code(s): I50.23 - Acute on chronic systolic (congestive) heart failure Status: Acute (2) Shockable cardiac rhythm detected by automated external defibrillator: Code(s): I49.9 - Cardiac arrhythmia, unspecified Status: Acute (3) Essential (primary) hypertension: Code(s): I10 - Essential (primary) hypertension Status: Acute (4) Hyperlipidemia, unspecified: Qualifiers: Hyperlipidemia type: pure hypercholesterolemia Qualified Code(s): E 78.00 - Pure hypercholesterolemia, unspecified Code(s): E78.5 - Hyperlipidemia, unspecified Status: Acute (5) Atrial fibrillation: Qualifiers: Atrial fibrillation type: paroxysmal Qualified Code(s): I48.0 - Paroxysmal atrial fibrillation Code(s): I48.91 - Unspecified atrial fibrillation Status: Acute Plan Assessment: ICD shocks x2 Elevated troponin: 0.018, 0.022, 0.026 most likely secondary to ICD shocks-no chest pain Acute on chronic Systolic heart failure with LVEF less than 20% by echo in 2022 (this is a drop from prior EF of 35-40% in 2022) Atrial fibrillation on chronic anticoagulation with Coumadin Hyperlipidemia Type 2 diabetes mellitus Hypotension with systolic less than 100 during clinic visits-on midodrine as outpatient Plan: Check BNP Obtain records from outside hospital regarding patient's recent hospitalization in September, Medtronic ICD device interrogation Continue sotalol Continue Coumadin for anticoagulation for AFib Continue atorvastatin Continue midodrine Give 1 dose of Lasix 40 mg IV Continue guideline directed medical therapy for systolic heart [id number], empagliflozin, spironolactone; add Entresto if patient tolerates Troponin elevated in the setting of ICD shocks. If interrogation reveals VT/VF, then patient may benefit from cardiac catheterization to evaluate for ischemia as cause Patient follows with EP at [facility]. He had refused increasing dose of sotalol and VT ablation in the past. Given that he is having recurrent shocks probably best to go back and see EP for consideration of VT ablation Monitor electrolytes and replace as needed keeping potassium greater than 4 and magnesium greater than 2 Management of other noncardiac medical problems per primary team History of Present Illness History of Present Illness Consult date/time: 10/26/24 08:20 Reason For Visit: Defibrillator shock, VT Narrative: 69-year-old male with systolic heart failure status post Medtronic ICD (LVEF less than 20% by echo in September,), history of VT/VF (follows with EP at [facility], patient refused increasing dose of sotalol and VT ablation in the past), ICD shocks in 2019, type 2 diabetes mellitus, alcohol abuse, morbid obesity, hyperlipidemia, hypertension, AFib on chronic anticoagulation, irritable bowel syndrome, DJD presents for shocks discharged from his ICD (2 shocks around 8:00 p.m. last night). Patient states that he was fast asleep when he woke up to ICD shocks. He had 2 shocks. In the past he had shocks from his ICD in 2019 for VT/VF. He follows with EP at [facility]. He refused increasing dose of sotalol and VT ablation in the past. Patient denies any chest pain, shortness of breath, dizziness, lightheadedness, presyncopal, nausea, emesis, diaphoresis either before or after his ICD shock. No leg swelling, recent weight gain, syncope. He states that he had heartburn in September, which was very concerning since it did not resolve with his usual GI medicines. He then presented to the hospital but is unable to tell me the therapy she received at that time. There is no cardiac catheterization performed here at [facility]. Patient is not able to tell me if he had a cardiac catheterization in the recent past. 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 Obesity care home (current) use of anticoagulants Deficiency of other specified B group vitamins Major depressive disorder in full remission Morbid (severe) obesity due to excess calories Other seizures Unspecified systolic (congestive) heart failure Other sequelae of cerebral infarction Hyperlipidemia, unspecified Essential (primary) hypertension Left knee DJD Right knee DJD Diabetes type 2, controlled CHF (congestive heart failure) ICD (implantable cardioverter-defibrillator) in place History of ventricular fibrillation Atrial fibrillation Seizure Diarrhea DJD (degenerative joint disease) Crohn's disease Family History Family History Father Family history of malignant neoplasm Family history of lung cancer Mother Family history of dementia Family history of malignant neoplasm of breast in first degree relative Grandparent Diabetes mellitus Social History Social History Smoking status: Never smoker Alcohol intake: former Alcohol use details: social Substance use: never Substance use type: does not use Do You Feel Safe in your Home?: Yes Lack of Transportation: No Lack of Food: Never True Current Housing: I Have Housing Concerned About Future Housing: No Difficulty Paying Gas/Electric Bills: No Difficulty Paying for Meds: No Currently Unemployed: No Education: High School Diploma/GED Difficulty w/ Childcare or Family Care: No Living arrangements: with family Occupation/Education: retired Gender identity (if verbalized by the patient): Male Sexual Orientation (if Verbalized by the Patient): Straight or Heterosexual Spiritual care concerns: No Meds Home Medications and Allergies Home Medications ?Medication ?Instructions ?Recorded ?Confirmed ?Type atorvastatin 20 mg tablet 20 mg PO DAILY 08/05/20 10/26/24 History clonazepam 1 mg tablet 1 mg PO Q12H PRN axiety 08/05/20 10/26/24 History cyanocobalamin (vitamin B-12) 500 500 mcg PO DAILY 09/09/21 10/26/24 History mcg tablet infliximab-abda 100 mg intravenous 100 mg IV [id number] 02/14/23 10/26/24 History solution bismuth subsalicylate 262 mg/15 mL 2 mg PO QID PRN Diarrhea 03/17/23 10/26/24 History oral suspension clobazam 10 mg tablet 20 mg PO BID 06/15/23 10/26/24 History sotalol 120 mg tablet 120 mg PO BID 07/22/23 10/26/24 History tamsulosin 0.4 mg capsule 0.4 mg PO DAILY #90 caps 08/15/23 10/26/24 Rx allopurinol 100 mg tablet 100 mg PO DAILY #90 tabs 07/06/24 10/26/24 Rx ipratropium bromide 42 mcg (0.06 2 spray intranasal BID #15 mL 08/23/24 10/26/24 Rx %) nasal spray Multivitamin And Mineral 1 tablet PO DAILY 10/26/24 10/26/24 History azathioprine 50 mg tablet 100 mg PO DAILY 10/26/24 10/26/24 History bismuth subsalicylate 262 mg 1 tablet PO QID PRN upset stomach 10/26/24 10/26/24 History chewable tablet (Pepto-Bismol) dicyclomine 10 mg capsule 20 mg PO BID 10/26/24 10/26/24 History empagliflozin 10 mg tablet 10 mg PO QAM 10/26/24 10/26/24 History (Jardiance) ergocalciferol (vitamin D2) 1,250 50,000 unit PO WEEKLY 10/26/24 10/26/24 History mcg (50,000 unit) capsule midodrine 2.5 mg tablet 7.5 mg PO TIDWM 10/26/24 10/26/24 History spironolactone 25 mg tablet 12.5 mg PO DAILY 10/26/24 10/26/24 History warfarin 4 mg tablet 6 mg PO DAILY 10/26/24 10/26/24 History Allergies Allergy/AdvReac Type Severity Reaction Status Date / Time No Known Allergies Allergy Verified 10/25/24 22:13 Vital Signs Vital Signs - 24 hr 10/25/24 22:02 10/25/24 22:29 10/25/24 22:29 Temperature 36.6 C 36.3 C L Pulse Rate 65 64 63 Respiratory Rate 22 H 20 Blood Pressure 104/66 113/64 Pulse Oximetry 100 93 Oxygen Delivery Room Air 10/26/24 02:20 10/26/24 04:00 10/26/24 04:00 Temperature 36.4 C Pulse Rate 89 60 Respiratory Rate 16 Blood Pressure 118/69 Pulse Oximetry 100 100 Oxygen Delivery Room Air 10/26/24 04:00 10/26/24 06:00 10/26/24 07:56 Temperature 36.5 C 36.4 C L Pulse Rate 61 60 62 Respiratory Rate 18 18 Blood Pressure 116/63 110/60 Pulse Oximetry 18 L 100 Oxygen Delivery Exam 2 Narrative: General: Alert oriented x3, no acute distress Neck: Supple, JVD + Chest: Bilaterally clear to auscultation, no rales or rhonchi Cardiac: S1, S2 +, regular rate, regular rhythm, no murmurs or rubs Extremities: No pedal edema, no skin rash Neurologic: Alert and oriented x3, no focal neurological deficits Results Labs and Meds 10/26/24 07:04 10/26/24 07:04 Lab results: Cardiac Enzymes 10/25/24 10/26/24 10/26/24 Range/Units 22:29 03:24 07:04 AST 42 (17-59) U/L Troponin I 0.018 0.022 D 0.026 (0.000-0.034) ng/mL Coagulation 10/25/24 10/26/24 Range/Units 22:29 07:04 PT 24.9 H 25.1 H (11.1-14.7) Seconds APTT 32.3 (22.3-36.8) Seconds CBC 10/25/24 10/26/24 Range/Units 22:29 07:04 WBC 4.1 L 3.5 L (4.5-10.0) K/mm3 RBC 3.17 L 3.13 L (4.6-6.20) M/mm3 Hgb 12.4 L 12.3 L (14.0-18.0) g/dL Hct 35.1 L 34.9 L (42.0-52.0) % Plt Count 118 L 110 L (150-375) k/mm3 Lymph # (Auto) 0.99 0.92 (0.9-3.2) K/mm3 [place] # (Auto) 0.3 0.3 (0.1-0.6) K/mm3 Eos # (Auto) 0.2 0.2 (0-0.3) K/mm3 Baso # (Auto) 0.0 0.0 (0.0-0.1) K/mm3 Comprehensive Metabolic Panel 10/25/24 10/26/24 Range/Units 22:29 07:04 Sodium 137 139 (137-145) mmol/L Potassium 3.8 3.9 (3.4-5.0) mmol/L Chloride 103 104 (98-107) mmol/L Carbon Dioxide 27 31 H (22-30) mmol/L BUN 19 14 D (9-20) mg/dL Creatinine 0.67 L 0.62 L (0.7-1.3) mg/dL Glucose 132 H 87 (65-110) mg/dL Calcium 9.0 8.8 (8.4-10.2) mg/dL AST 42 (17-59) U/L ALT 29 (6-50) U/L Alkaline Phosphatase 81 (38-126) U/L Total Protein 7.0 (6.3-8.2) g/dL Albumin 3.9 3.9 (3.5-5.1) g/dL Intake and Output 10/25/24 10/26/24 10/26/24 23:59 07:59 15:59 Intake Total 200 Output Total 400 Balance -200 Intake: Oral 200 Output: Urine 400 Patient Weight 10/26/24 23:59 Weight 84.8 kg
--- NOTE | 2024-10-26 09:01 | IVDEFINITY ---
Prior to administration of IV Definity the patient was educated on the risks and benefits of the imaging enhancing agent including potential adverse side effects. The patient verbalized understanding. Allergies were verified. No exclusion criteria were identified and at least one of the following inclusion criteria were met: 1) physician request, 2) patient technically difficult to image (per the [place] [employer]chocardi[employer] guidelines of two or more segments not discernable within the apical view), or 3) questionable left ventricular function. ?
[2024-10-26] MEDS: SOTALOL HCL 40 MG TABLET 120 MG PO ×2 (09:26→20:31)
[2024-10-26] MEDS: EMPAGLIFLOZIN 10 MG TABLET PO (09:26)
[2024-10-26] MEDS: DICYCLOMINE HCL 10 MG CAPSULE 20 MG PO ×2 (09:26→17:44)
[2024-10-26] MEDS: SPIRONOLACTONE 12.5 MG TABLET PO (09:26)
[2024-10-26] MEDS: cloBAZam (*CRX) 10 MG TABLET 20 MG PO ×2 (09:27→20:32)
[2024-10-26] MEDS: THERAPEUTIC MULTIVITAMINS/MINERALS TAB (*BKC) 1 TABLET PO (09:27)
[2024-10-26] MEDS: azaTHIOprine 50 MG TABLET 100 MG PO (09:27)
[2024-10-26] MEDS: CYANOCOBALAMIN 500 MCG TABLET PO (09:27)
[2024-10-26] MEDS: allopurinoL 100 MG TABLET PO (09:27)
[2024-10-26] MEDS: ERGOCALCIFEROL 50,000 UNITS CAPSULE 50000 UNITS PO (09:27)
[2024-10-26] MEDS: ATORVASTATIN 20 MG TABLET PO (09:27)
[2024-10-26] MEDS: TAMSULOSIN HCL 0.4 MG CAPSULE PO (09:27)
[2024-10-26] MEDS: MIDODRINE HCL 2.5 MG TABLET 7.5 MG PO ×3 (09:27→17:44)
[2024-10-26] MEDS: IPRATROPIUM NASAL SPRAY 0.06% 15 ML BOTTLE 2 SPRAY NASAL ×2 (09:28→17:44)
--- NOTE | 2024-10-26 09:41 | P.HP_ITS ---
H&P: HPI History of Present Illness Date/Time: 10/26/24 09:41 Chief Complaint: ICD shock Narrative: Patient is a 69-year-old male who presents to the emergency department this evening stating that he has defibrillator shocked him twice last evening. Patient states this happened around 8:00 p.m.. He states that when the shocks happened he had no symptoms, specifically no chest pain or shortness of breath, no nausea or vomiting. 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 Patient is currently denying any symptoms including chest pain or shortness of breath. Denies any recent URI illness. No additional symptoms or concerns at this time. Review of Systems Review of Systems: - CONSTITUTIONAL: Denies weight loss, fe ag and chills. - HEENT: Denies changes in vision and he aring - RESPIRATORY: Denies SOB and cough. - CV: Denies palpitations and CP. - GI: Denies abdominal pain, nausea, vom iting and diarrhea. - : Denies dysuria and urinary frequen cy. - MSK: Denies myalgia and joint pain. - SKIN: Denies rash and pruritus. - NEUROLOGICAL: Denies headache and sync ope. - PSYCHIATRIC: Denies recent changes in mood. Denies anxiety and depression. 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 Charcot Dawna Tooth muscular atrophy Obesity penitentiary (current) use of anticoagulants Deficiency of other specified B group vitamins Major depressive disorder in full remission Morbid (severe) obesity due to excess calories Other seizures Unspecified systolic (congestive) heart failure Other sequelae of cerebral infarction Hyperlipidemia, unspecified Essential (primary) hypertension Left knee DJD Right knee DJD Diabetes type 2, controlled CHF (congestive heart failure) ICD (implantable cardioverter-defibrillator) in place History of ventricular fibrillation Atrial fibrillation Seizure Diarrhea DJD (degenerative joint disease) Crohn's disease Family History Family History Father Family history of malignant neoplasm Family history of lung cancer Mother Family history of dementia Family history of malignant neoplasm of breast in first degree relative Grandparent Diabetes mellitus Social History Social History Smoking status: Never smoker Alcohol intake: former Alcohol use details: social Substance use: never Substance use type: does not use Do You Feel Safe in your Home?: Yes Lack of Transportation: No Lack of Food: Never True Current Housing: I Have Housing Concerned About Future Housing: No Difficulty Paying Gas/Electric Bills: No Difficulty Paying for Meds: No Currently Unemployed: No Education: High School Diploma/GED Difficulty w/ Childcare or Family Care: No Living arrangements: with family Occupation/Education: retired Gender identity (if verbalized by the patient): Male Sexual Orientation (if Verbalized by the Patient): Straight or Heterosexual Spiritual care concerns: No Meds Home Medications and Allergies Home Medications ?Medication ?Instructions ?Recorded ?Confirmed ?Type atorvastatin 20 mg tablet 20 mg PO DAILY 08/05/20 10/26/24 History clonazepam 1 mg tablet 1 mg PO Q12H PRN axiety 08/05/20 10/26/24 History cyanocobalamin (vitamin B-12) 500 500 mcg PO DAILY 09/09/21 10/26/24 History mcg tablet infliximab-abda 100 mg intravenous 100 mg IV [id number] 02/14/23 10/26/24 History solution bismuth subsalicylate 262 mg/15 mL 2 mg PO QID PRN Diarrhea 03/17/23 10/26/24 History oral suspension clobazam 10 mg tablet 20 mg PO BID 06/15/23 10/26/24 History sotalol 120 mg tablet 120 mg PO BID 07/22/23 10/26/24 History tamsulosin 0.4 mg capsule 0.4 mg PO DAILY #90 caps 08/15/23 10/26/24 Rx allopurinol 100 mg tablet 100 mg PO DAILY #90 tabs 07/06/24 10/26/24 Rx ipratropium bromide 42 mcg (0.06 2 spray intranasal BID #15 mL 08/23/24 10/26/24 Rx %) nasal spray Multivitamin And Mineral 1 tablet PO DAILY 10/26/24 10/26/24 History azathioprine 50 mg tablet 100 mg PO DAILY 10/26/24 10/26/24 History bismuth subsalicylate 262 mg 1 tablet PO QID PRN upset stomach 10/26/24 10/26/24 History chewable tablet (Pepto-Bismol) dicyclomine 10 mg capsule 20 mg PO BID 10/26/24 10/26/24 History empagliflozin 10 mg tablet 10 mg PO QAM 10/26/24 10/26/24 History (Jardiance) ergocalciferol (vitamin D2) 1,250 50,000 unit PO WEEKLY 10/26/24 10/26/24 History mcg (50,000 unit) capsule midodrine 2.5 mg tablet 7.5 mg PO TIDWM 10/26/24 10/26/24 History spironolactone 25 mg tablet 12.5 mg PO DAILY 10/26/24 10/26/24 History warfarin 4 mg tablet 6 mg PO DAILY 10/26/24 10/26/24 History Allergies Allergy/AdvReac Type Severity Reaction Status Date / Time No Known Allergies Allergy Verified 10/25/24 22:13 Vital Signs Vital Signs - 24 hr 10/25/24 22:02 10/25/24 22:29 10/25/24 22:29 Temperature 97.9 F 97.3 F L Pulse Rate 65 64 63 Respiratory Rate 22 H 20 Blood Pressure 104/66 113/64 Pulse Oximetry 100 93 Oxygen Delivery Room Air 10/26/24 02:20 10/26/24 04:00 10/26/24 04:00 Temperature 97.6 F Pulse Rate 89 60 Respiratory Rate 16 Blood Pressure 118/69 Pulse Oximetry 100 100 Oxygen Delivery Room Air 10/26/24 04:00 10/26/24 06:00 10/26/24 07:56 Temperature 97.7 F 97.5 F L Pulse Rate 61 60 62 Respiratory Rate 18 18 Blood Pressure 116/63 110/60 Pulse Oximetry 18 L 100 Oxygen Delivery 10/26/24 09:26 Temperature Pulse Rate 63 Respiratory Rate Blood Pressure Pulse Oximetry Oxygen Delivery Exam Narrative: General: Alert, awake, afebrile, in no acute distress. HEENT: PERRL, no rhinorrhea, no post nasal drip, oropharynx clear. Neck: Trachea midline, no JVD, no lymphadenopathy. Cardiovascular: Regular rate and rhythm, no murmurs, rubs or gallops, no peripheral edema. Respiratory: Clear to auscultation bilaterally, no tachypnea, no wheezing, no rhonchi, no rubs, no respiratory distress. Abdomen: Soft, nontender, nondistended, no rebound, no guarding, no peritoneal signs. Musculoskeletal: No joint swelling or deformity, normal muscle tone. Skin: No rashes or petechia, no signs of infection. Psychiatric: Alert and oriented, normal behavior and judgment for situation. Neurological: Alert and oriented to person, place, and time. Follows all commands. No focal deficits, speech is clear and fluent. H&P: Results Labs Labs: Short CBC 10/25/24 10/26/24 Range/Units 22:29 07:04 WBC 4.1 L 3.5 L (4.5-10.0) K/mm3 Hgb 12.4 L 12.3 L (14.0-18.0) g/dL Hct 35.1 L 34.9 L (42.0-52.0) % Plt Count 118 L 110 L (150-375) k/mm3 BMP 10/25/24 10/26/24 22:29 07:04 Sodium 137 139 Potassium 3.8 3.9 Chloride 103 104 Carbon Dioxide 27 31 H BUN 19 14 D Creatinine 0.67 L 0.62 L Glucose 132 H 87 Calcium 9.0 8.8 Cardiac Enzymes 10/25/24 10/26/24 10/26/24 Range/Units 22:29 03:24 07:04 Troponin I 0.018 0.022 D 0.026 (0.000-0.034) ng/mL Liver Function 10/25/24 10/26/24 Range/Units 22:29 07:04 Total Bilirubin 0.8 (0.2-1.3) mg/dL AST 42 (17-59) U/L ALT 29 (6-50) U/L Alkaline Phosphatase 81 (38-126) U/L Albumin 3.9 3.9 (3.5-5.1) g/dL Assessment and Plan Assessment and plan (1) Shockable cardiac rhythm detected by automated external defibrillator: Code(s): I49.9 - Cardiac arrhythmia, unspecified Status: Acute (2) Unspecified systolic (congestive) heart failure: Qualifiers: Heart failure chronicity: chronic Qualified Code(s): I50.22 - Chronic systolic (congestive) heart failure Code(s): I50.20 - Unspecified systolic (congestive) heart failure Status: Acute (3) buttermaker continuous churn (current) use of anticoagulants: Code(s): Z79.01 - buttermaker continuous churn (current) use of anticoagulants Status: Acute (4) Hyperlipidemia, unspecified: Qualifiers: Hyperlipidemia type: pure hypercholesterolemia Qualified Code(s): E78.00 - Pure hypercholesterolemia, unspecified Code(s): E78.5 - Hyperlipidemia, unspecified Status: Acute (5) Arrhythmia: Code(s): I49.9 - Cardiac arrhythmia, unspecified Status: Acute (6) 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: Code(s): E11.3299 - Type 2 diabetes mellitus with mild nonproliferative diabetic retinopathy without macular edema, unspecified eye Status: Acute (7) Crohn's disease: Qualifiers: Gastrointestinal tract location: unspecified location Digestive disease complication type: without complication Qualified Code(s): K50.90 - Crohn's disease, unspecified, without complications Code(s): K50.90 - Crohn's disease, unspecified, without complications Status: Acute (8) Other seizures: Code(s): G40.89 - Other seizures Status: Acute Plan Patient is a 69-year-old male who presents to the emergency department this evening stating that he has defibrillator shocked him twice last evening. Patient states this happened around 8:00 p.m.. He states that when the shocks happened he had no symptoms, specifically no chest pain or shortness of breath, no nausea or vomiting. 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 Patient is currently denying any symptoms including chest pain or shortness of breath. Denies any recent URI illness. No additional symptoms or concerns at this time. An ED evaluation his vitals were stable. EKG showed paced rhythm at a rate of 66 beats per minute. Laboratory study revealed WBC of 4.1 hemoglobin 12.4 came panel was unremarkable. LFTs were normal. Troponin was negative. Lipase was mildly elevated at 329. Chest x-ray with mild pulmonary vascular congestion with coarse interstitial lung markings. No focal infiltrate or effusion. ICD shocks interpretation of the pace maker device. Cardiology consultation. Echo has been ordered No electrolyte abnormality noted on laboratory evaluation. 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 Prior to this he had dual-chamber defibrillator placed in 2019. 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 Crohn's disease Seizure disorder History of LV thrombus in the past Chronic immunosuppressive therapy for chronic Crohn's disease Type 2 diabetes mellitus Chronic hypotension on midodrine DVT prophylaxis on warfarin Code status modified Hospitalist [facility] Advance Care Plan I have confirmed that the patient's Advanced Care Plan is present, code status is documented, or surrogate decision maker is listed in patient medical record.: Yes Medication Reconciliation I have utilized all available resources to obtain, update and review the patients current medications (includes all prescriptions, OTC, herbals, cannabis, and nutritional supplements).: Yes
[2024-10-26] MEDS: LOPERAMIDE HCL 2 MG CAPSULE 4 MG PO ×2 (11:35→20:32)
[2024-10-26] MEDS: WARFARIN (*PBKC) 3 MG TABLET 6 MG PO (17:44)
[2024-10-27] VITALS (16 sets, daily range): BP systolic 106–118; BP diastolic 56–64; PULSE 60–116; RESP 12–20; TEMP 36.3–37.1; O2SAT 97–100
[2024-10-27 04:45] LABS: Basophils Percent Auto 0.8 % (0.2-1.2); Eosinophils Absolute Auto 0.2 K/mm3 (0-0.3); Hematocrit 36.4 % (42.0-52.0); Hemoglobin 12.5 g/dL (14.0-18.0); Immature Granulocyte Absolute 0.02 K/mm3 (0.00-0.031); Immature Granulocyte Percent A 0.5 % (0-0.5); Immature Platelet Fraction Pct 4.3 % (0.9-11.2); Lymphocytes Absolute Auto 1.14 K/mm3 (0.9-3.2); Lymphocytes Percent Auto 28.6 % (18.3-44.2); Mean Corpuscular HGB Conc 34.3 g/dl (32-36); Mean Corpuscular Hemoglobin 38.6 pg (26-34); Mean Corpuscular Volume 112.3 fl (80-100); Mean Platelet Volume 10.7 fl (7.4-10.4); Monocytes Absolute Auto 0.4 K/mm3 (0.1-0.6); Monocytes Percent Auto 8.8 % (2.6-8.5); Neutrophils Absolute Auto 2.2 K/mm3 (1.3-6.7); Neutrophils Percent Auto 55.3 % (45.5-73.1); Platelet Count Result 123 k/mm3 (150-375); Red Blood Count 3.24 M/mm3 (4.6-6.20)
[2024-10-27 04:57] LABS: INR 2.3; Prothrombin Time 25.7 Seconds (11.1-14.7)
[2024-10-27 04:58] LABS: Alanine Aminotransferase 23 U/L (6-50); Albumin Level 3.6 g/dL (3.5-5.1); Alkaline Phosphatase 70 U/L (38-126); Anion Gap 6 mmol/L (4-12); Aspartate Amino Transferase 32 U/L (17-59); Bilirubin,Total 0.9 mg/dL (0.2-1.3); Blood Urea Nitrogen 13 mg/dL (9-20); Calcium 8.5 mg/dL (8.4-10.2); Carbon Dioxide 30 mmol/L (22-30); Chloride 103 mmol/L (98-107); Estimated CRCL calculation 95 ml/min; Estimated Glomerular Filt Rate > 60; Glucose 101 mg/dL (65-110); Magnesium 1.9 mg/dL (1.6-2.3); Phosphorus 3.8 mg/dL (2.5-4.5); Sodium 139 mmol/L (137-145)
--- NOTE | 2024-10-27 07:41 | PM.PNCARD ---
Progress Note: A&P Assessment and Plan (1) Shockable cardiac rhythm detected by automated external defibrillator: Code(s): I49.9 - Cardiac arrhythmia, unspecified Status: Acute (2) Hyperlipidemia, unspecified: Qualifiers: Hyperlipidemia type: pure hypercholesterolemia Qualified Code(s): E78.00 - Pure hypercholesterolemia, unspecified Code(s): E78.5 - Hyperlipidemia, unspecified Status: Acute (3) Ventricular tachycardia: Code(s): I47.20 - Ventricular tachycardia, unspecified Status: Acute (4) Alcohol abuse: Code(s): F10.10 - Alcohol abuse, uncomplicated Status: Acute (5) Atrial fibrillation: Qualifiers: Atrial fibrillation type: paroxysmal Qualified Code(s): I48.0 - Paroxysmal atrial fibrillation Code(s): I48.91 - Unspecified atrial fibrillation Status: Acute (6) Acute on chronic systolic heart failure: Code(s): I50.23 - Acute on chronic systolic (congestive) heart failure Status: Acute Plan Assessment: -ICD shocks x2; no recurrence of shocks since admission-patient could not tolerate amiodarone in the past due to flare-up of his IBS, could not tolerate metoprolol -VT degenerated into VF x2 (based on ICD interrogation)- VT most likely from scar -Elevated troponin: 0.018, 0.022, 0.026 secondary to VT/VF is and ICD shocks; no chest pain -Acute on chronic Systolic heart failure with LVEF 30-35% (EF less than 20% in September,); reason wall motion abnormality with inferior/posterior hypokinesis to akinesis-on exam hypervolemic -Atrial fibrillation on chronic anticoagulation with Coumadin -Hyperlipidemia -Type 2 diabetes mellitus -Hypotension with systolic less than 100 during clinic visits-on midodrine as outpatient Plan: -Difficult case of VT as patient has intolerance to amiodarone (flare of IBS) and could not tolerate metoprolol in the past. Other options include increasing dose of sotalol versus VT ablation requiring EP consultation. Dr. Woodall, patient's primary EP has accepted patient in transfer to [facility] for further management -Continue sotalol -Continue Coumadin for anticoagulation for AFib -Continue atorvastatin -Continue midodrine -Lasix 40 mg IV b.i.d. -Guideline directed medical therapy for systolic heart failure- continue beta-tal, empagliflozin, spironolactone; add Entresto if patient tolerates -If patient has not had recent catheterization, then cardiac catheterization to evaluate coronaries -Monitor electrolytes and replace as needed keeping potassium greater than 4 and magnesium greater than 2 -Management of other noncardiac medical problems per primary team Subjective Date/time seen: 10/27/24 07:41 Interval history: Reason For Visit: Defibrillator shock, VT HPI: 69-year-old male with systolic heart failure status post [employer] ICD (LVEF less than 20% by echo in September,; LVEF 35 to 40% by echo in 2022), history of VT/VF (follows with EP at [facility], patient refused increasing dose of sotalol and VT ablation in the past), ICD shocks in 2019 for VT/VF, type 2 diabetes mellitus, alcohol abuse, morbid obesity, hyperlipidemia, hypertension, AFib on chronic anticoagulation, irritable bowel syndrome, DJD presents for shocks discharged from his ICD (2 shocks around 8:00 p.m. last night). Device interrogation showed rhythm was VT degenerated into VF into circumstances that were treated with 1 successful shock each. No chest pain, shortness of breath, dizziness, lightheadedness, presyncope, syncope, nausea, emesis, diaphoresis either before or after his ICD shock. Workup: Platelets [id number], Hemoglobin 12.4 Troponin: 0.018, 0.022, 0.026 EKG: V paced rhythm Chest x-ray: Pulmonary vascular congestion with coarse interstitial lung markings Cardiac MRI in 2019: Infarct in the inferior and inferolateral lyles with hypokinesis Echo in 2022: LV EF 35-40% Echo in September, showed LV EF less than 20% Echo during this hospitalization: LVEF is severely depressed at 30-35%, regional wall motion abnormalities present-basal to apical posterior/inferior wall is hypokinetic to akinetic Interval history: Patient did not have any further shocks since admission. No chest pain, shortness of breath, nausea, abdominal pain. He was accepted in transfer to [facility] by Dr. 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 Review of Systems Review of Systems: A complete review of systems was performed negative other than those mentioned in the HPI Exam Narrative: General: Alert oriented x3, no acute distress Neck: Supple, JVD + Chest: Bilaterally clear to auscultation, no rales or rhonchi Cardiac: S1, S2 +, regular rate, regular rhythm, no murmurs or rubs Extremities: Bilateral lower extremity edema 1+, no skin rash Neurologic: Alert and oriented x3, no focal neurological deficits Objective Data Vital Signs Vital Signs: Vital Signs - 24 hr 10/26/24 07:56 10/26/24 08:00 10/26/24 08:00 Temperature 36.4 C L Pulse Rate 62 63 Respiratory Rate 18 Blood Pressure 110/60 Pulse Oximetry 100 Oxygen Delivery Room Air 10/26/24 09:26 10/26/24 10:00 10/26/24 12:00 Temperature 36.3 C L Pulse Rate 63 60 60 Respiratory Rate 20 Blood Pressure 121/60 Pulse Oximetry 100 Oxygen Delivery 10/26/24 12:00 10/26/24 12:00 10/26/24 14:00 Temperature Pulse Rate 63 60 Respiratory Rate Blood Pressure Pulse Oximetry Oxygen Delivery Room Air 10/26/24 15:45 10/26/24 16:00 10/26/24 16:00 Temperature 36.3 C L Pulse Rate 60 66 Respiratory Rate 20 Blood Pressure 119/62 Pulse Oximetry 98 Oxygen Delivery Room Air 10/26/24 18:00 10/26/24 19:59 10/26/24 20:00 Temperature 36.6 C Pulse Rate 60 60 60 Respiratory Rate 18 Blood Pressure 112/56 L Pulse Oximetry 99 Oxygen Delivery 10/26/24 20:31 10/26/24 22:00 10/26/24 23:24 Temperature 36.8 C Pulse Rate 60 61 60 Respiratory Rate 16 Blood Pressure 89/49 L Pulse Oximetry 100 Oxygen Delivery 10/26/24 23:25 10/27/24 00:00 10/27/24 00:00 Temperature Pulse Rate 60 Respiratory Rate Blood Pressure 101/57 L Pulse Oximetry Oxygen Delivery Room Air 10/27/24 02:00 10/27/24 04:00 10/27/24 04:00 Temperature Pulse Rate 60 60 Respiratory Rate Blood Pressure Pulse Oximetry Oxygen Delivery Room Air 10/27/24 05:03 10/27/24 06:00 Temperature 37.1 C Pulse Rate 60 60 Respiratory Rate 18 Blood Pressure 107/64 Pulse Oximetry 99 Oxygen Delivery Intake/Output Intake/Output: Intake & Output 10/24/24 10/25/24 10/26/24 10/27/24 23:59 23:59 23:59 23:59 Intake Total 1440 1000 Output Total 1600 1300 Balance -160 -300 Meds/Results Medications: Active Medications Generic Name Dose Route Start Last Admin Trade Name Yobany PRN Reason Stop Dose Admin Allopurinol 100 mg 10/26/24 09:00 10/26/24 09:27 Allopurinol 100 Mg Tablet PO 100 mg DAILY GERA Administration Atorvastatin Calcium 20 mg 10/26/24 09:00 10/26/24 09:27 Atorvastatin 20 Mg Tablet PO 20 mg DAILY GERA Administration Azathioprine 100 mg 10/26/24 09:00 10/26/24 09:27 Azathioprine 50 Mg Tablet PO 100 mg DAILY GERA Administration Bismuth Subsalicylate 262 mg 10/26/24 03:40 Bismuth Subsalicylate 262 Mg Chewable Tablet PO QID PRN upset stomach Clobazam 20 mg 10/26/24 09:00 10/26/24 20:32 Clobazam (*Crx) 10 Mg Tablet PO 20 mg Q12HR GERA Administration Clonazepam 1 mg 10/26/24 03:36 Clonazepam (*Crx) 0.5 Mg Tablet PO Q12H PRN axiety Cyanocobalamin 500 mcg 10/26/24 09:00 10/26/24 09:27 Cyanocobalamin 500 Mcg Tablet PO 500 mcg DAILY GERA Administration Dicyclomine HCl 20 mg 10/26/24 09:00 10/26/24 17:44 Dicyclomine Hcl 10 Mg Capsule PO 20 mg BID GERA Administration Empagliflozin 10 mg 10/26/24 09:00 10/26/24 09:26 Empagliflozin 10 Mg Tablet PO 10 mg QAM GERA Administration Ergocalciferol 50,000 units 10/26/24 09:00 10/26/24 09:27 Ergocalciferol 50,000 Units Capsule PO 50,000 units WEEKLY GERA Administration Ipratropium [place] 2 spray 10/26/24 09:00 10/26/24 17:44 Ipratropium Nasal [place] 0.06% 15 Ml Bottle NASAL 2 spray BID GERA Administration Loperamide HCl 4 mg 10/26/24 11:30 10/26/24 20:32 Loperamide Hcl 2 Mg Capsule PO 4 mg Q12HR GERA Administration Midodrine 7.5 mg 10/26/24 08:00 10/26/24 17:44 Midodrine Hcl 2.5 Mg Tablet PO 7.5 mg TIDWM GERA Administration Multivitamins/Calcium 1 tablet 10/26/24 09:00 10/26/24 09:27 Therapeutic Multivitamins/Minerals Tab (*Bkc) PO 1 tablet QAM GERA Administration Sotalol HCl 120 mg 10/26/24 09:00 10/26/24 20:31 Sotalol Hcl 40 Mg Tablet PO 120 mg Q12HR GERA Administration Spironolactone 12.5 mg 10/26/24 09:00 10/26/24 09:26 Spironolactone 12.5 Mg Tablet PO 12.5 mg DAILY GERA Administration Tamsulosin HCl 0.4 mg 10/26/24 09:00 10/26/24 09:27 Tamsulosin Hcl 0.4 Mg Capsule PO 0.4 mg DAILY GERA Administration Warfarin Sodium 6 mg 10/26/24 17:00 10/26/24 17:44 Warfarin (*Pbkc) 3 Mg Tablet PO 6 mg DAILY@1700 GERA Administration Radiology Results: ITS Impressions Chest X-Ray 10/25/24 23:29 IMPRESSION: Mild pulmonary vascular congestion with coarse interstitial lung markings. No focal infiltrate or effusion. Labs Labs: Laboratory Results - last 24 hr 10/26/24 10/27/24 07:04 04:06 WBC 4.0 L RBC 3.24 L Hgb 12.5 L Hct 36.4 L MCV 112.3 H MCH 38.6 H MCHC 34.3 RDW 15.0 H Plt Count 123 L MPV 10.7 H Immature Gran % (Auto) 0.5 Neut % (Auto) 55.3 Lymph % (Auto) 28.6 [place] % (Auto) 8.8 H Eos % (Auto) 6.0 H Baso % (Auto) 0.8 Lymph # (Auto) 1.14 [place] # (Auto) 0.4 Eos # (Auto) 0.2 Baso # (Auto) 0.0 Abs Immat Gran (auto) 0.02 Absolute Neuts (auto) 2.2 Absolute Nucleated RBC 0.000 Nucleated RBC % 0.0 % Immature Plt Fraction 4.3 PT 25.7 H INR 2.3 Sodium 139 Potassium 4.0 Chloride 103 Carbon Dioxide 30 Anion Gap 6 BUN 13 Creatinine 0.61 L Estim Creat Clear Calc 95 Estimated GFR > 60 Glucose 101 Calcium 8.5 Phosphorus 3.8 Magnesium 1.9 Total Bilirubin 0.9 AST 32 ALT 23 Alkaline Phosphatase 70 Troponin I 0.026 Total Protein 6.0 L Albumin 3.6
[2024-10-27] MEDS: TAMSULOSIN HCL 0.4 MG CAPSULE PO (09:16)
[2024-10-27] MEDS: LOPERAMIDE HCL 2 MG CAPSULE 4 MG PO ×2 (09:16→21:08)
[2024-10-27] MEDS: azaTHIOprine 50 MG TABLET 100 MG PO (09:17)
[2024-10-27] MEDS: SPIRONOLACTONE 12.5 MG TABLET PO (09:17)
[2024-10-27] MEDS: THERAPEUTIC MULTIVITAMINS/MINERALS TAB (*BKC) 1 TABLET PO (09:22)
[2024-10-27] MEDS: EMPAGLIFLOZIN 10 MG TABLET PO (09:22)
[2024-10-27] MEDS: allopurinoL 100 MG TABLET PO (09:22)
[2024-10-27] MEDS: CYANOCOBALAMIN 500 MCG TABLET PO (09:22)
[2024-10-27] MEDS: cloBAZam (*CRX) 10 MG TABLET 20 MG PO ×2 (09:22→21:08)
[2024-10-27] MEDS: ATORVASTATIN 20 MG TABLET PO (09:22)
[2024-10-27] MEDS: DICYCLOMINE HCL 10 MG CAPSULE 20 MG PO ×2 (09:22→18:19)
[2024-10-27] MEDS: MIDODRINE HCL 2.5 MG TABLET 7.5 MG PO ×3 (09:25→18:19)
[2024-10-27] MEDS: SOTALOL HCL 40 MG TABLET 120 MG PO ×2 (09:26→21:08)
[2024-10-27] MEDS: IPRATROPIUM NASAL SPRAY 0.06% 15 ML BOTTLE 2 SPRAY NASAL ×2 (09:27→18:19)
--- NOTE | 2024-10-27 10:43 | PM.IMPN ---
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 of anticoagulants Status: Acute (4) Hyperlipidemia, unspecified: Qualifiers: Hyperlipidemia type: pure hypercholesterolemia Qualified Code(s): E78.00 - Pure hypercholesterolemia, unspecified Code(s): E78.5 - Hyperlipidemia, unspecified Status: Acute (5) Arrhythmia: Code(s): I49.9 - Cardiac arrhythmia, unspecified Status: Acute (6) 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: Code(s): E11.3299 - Type 2 diabetes mellitus with mild nonproliferative diabetic retinopathy without macular edema, unspecified eye Status: Acute (7) Crohn's disease: Qualifiers: Gastrointestinal tract location: unspecified location Digestive disease complication type: without complication Qualified Code(s): K50.90 - Crohn's disease, unspecified, without complications Code(s): K50.90 - Crohn's disease, unspecified, without complications Status: Acute (8) Other seizures: Code(s): G40.89 - Other seizures Status: Acute Plan Patient is a 69-year-old male who presents to the emergency department this evening stating that he has defibrillator shocked him twice last evening. Patient states this happened around 8:00 p.m.. He states that when the shocks happened he had no symptoms, specifically no chest pain or shortness of breath, no nausea or vomiting. 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 Patient is currently denying any symptoms including chest pain or shortness of breath. Denies any recent URI illness. No additional symptoms or concerns at this time. An ED evaluation his vitals were stable. EKG showed paced rhythm at a rate of 66 beats per minute. Laboratory study revealed WBC of 4.1 hemoglobin 12.4 came panel was unremarkable. LFTs were normal. Troponin was negative. Lipase was mildly elevated at 329. Chest x-ray with mild pulmonary vascular congestion with coarse interstitial lung markings. No focal infiltrate or effusion. ICD shocks: Interrogation of pacemaker device revealed VT/VF x2. Cardiology consultation. Echo 10/26/2024 with basal to apical posterior/inferior wall severely hypokinetic to akinetic. LVEF 30-35%. Patient has been plan to be transfer to [place] for EP evaluation. He has been accepted awaiting bed availability. No electrolyte abnormality noted on laboratory evaluation. 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 Prior to this he had dual-chamber defibrillator placed in 2019. 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 Patient awaiting transfer to [place]. Review of Systems Review of Systems: All systems reviewed & are unremarkable except as noted in HPI and below Exam Narrative: General: Alert, awake, afebrile, in no acute distress. HEENT: PERRL, no rhinorrhea, no post nasal drip, oropharynx clear. Neck: Trachea midline, no JVD, no lymphadenopathy. Cardiovascular: Regular rate and rhythm, no murmurs, rubs or gallops, no peripheral edema. Respiratory: Clear to auscultation bilaterally, no tachypnea, no wheezing, no rhonchi, no rubs, no respiratory distress. Abdomen: Soft, nontender, nondistended, no rebound, no guarding, no peritoneal signs. Musculoskeletal: No joint swelling or deformity, normal muscle tone. Skin: No rashes or petechia, no signs of infection. Psychiatric: Alert and oriented, normal behavior and judgment for situation. Neurological: Alert and oriented to person, place, and time. Follows all commands. No focal deficits, speech is clear and fluent. Objective Data Vital Signs Vital Signs: Vital Signs - 24 hr 10/26/24 12:00 10/26/24 12:00 10/26/24 12:00 Temperature 97.4 F L Pulse Rate 60 63 Respiratory Rate 20 Blood Pressure 121/60 Pulse Oximetry 100 Oxygen Delivery Room Air 10/26/24 14:00 10/26/24 15:45 10/26/24 16:00 Temperature 97.4 F L Pulse Rate 60 60 Respiratory Rate 20 Blood Pressure 119/62 Pulse Oximetry 98 Oxygen Delivery Room Air 10/26/24 16:00 10/26/24 18:00 10/26/24 19:59 Temperature 97.8 F Pulse Rate 66 60 60 Respiratory Rate 18 Blood Pressure 112/56 L Pulse Oximetry 99 Oxygen Delivery 10/26/24 20:00 10/26/24 20:31 10/26/24 22:00 Temperature Pulse Rate 60 60 61 Respiratory Rate Blood Pressure Pulse Oximetry Oxygen Delivery 10/26/24 23:24 10/26/24 23:25 10/27/24 00:00 Temperature 98.3 F Pulse Rate 60 Respiratory Rate 16 Blood Pressure 89/49 L 101/57 L Pulse Oximetry 100 Oxygen Delivery Room Air 10/27/24 00:00 10/27/24 02:00 10/27/24 04:00 Temperature Pulse Rate 60 60 Respiratory Rate Blood Pressure Pulse Oximetry Oxygen Delivery Room Air 10/27/24 04:00 10/27/24 05:03 10/27/24 06:00 Temperature 98.8 F Pulse Rate 60 60 60 Respiratory Rate 18 Blood Pressure 107/64 Pulse Oximetry 99 Oxygen Delivery 10/27/24 08:00 10/27/24 09:26 Temperature 97.7 F Pulse Rate 64 60 Respiratory Rate 16 Blood Pressure 107/58 L Pulse Oximetry 100 Oxygen Delivery Intake/Output Intake/Output: Intake & Output 10/24/24 10/25/24 10/26/24 10/27/24 23:59 23:59 23:59 23:59 Intake Total 1440 1240 Output Total 1600 1300 Balance -160 -60 Meds/Results Medications: Active Medications Generic Name Dose Route Start Last Admin Trade Name Freq PRN Reason Stop Dose Admin Allopurinol 100 mg 10/26/24 09:00 10/27/24 09:22 Allopurinol 100 Mg Tablet PO 100 mg DAILY GERA Administration Atorvastatin Calcium 20 mg 10/26/24 09:00 10/27/24 09:22 Atorvastatin 20 Mg Tablet PO 20 mg DAILY GERA Administration Azathioprine 100 mg 10/26/24 09:00 10/27/24 09:17 Azathioprine 50 Mg Tablet PO 100 mg DAILY GERA Administration Bismuth Subsalicylate 262 mg 10/26/24 03:40 Bismuth Subsalicylate 262 Mg Chewable Tablet PO QID PRN upset stomach Clobazam 20 mg 10/26/24 09:00 10/27/24 09:22 Clobazam (*Crx) 10 Mg Tablet PO 20 mg Q12HR GERA Administration Clonazepam 1 mg 10/26/24 03:36 Clonazepam (*Crx) 0.5 Mg Tablet PO Q12H PRN axiety Cyanocobalamin 500 mcg 10/26/24 09:00 10/27/24 09:22 Cyanocobalamin 500 Mcg Tablet PO 500 mcg DAILY GERA Administration Dicyclomine HCl 20 mg 10/26/24 09:00 10/27/24 09:22 Dicyclomine Hcl 10 Mg Capsule PO 20 mg BID GERA Administration Empagliflozin 10 mg 10/26/24 09:00 10/27/24 09:22 Empagliflozin 10 Mg Tablet PO 10 mg QAM [facility] Administration Ergocalciferol 50,000 units 10/26/24 09:00 10/26/24 09:27 Ergocalciferol 50,000 Units Capsule PO 50,000 units WEEKLY GERA Administration Ipratropium [place] 2 spray 10/26/24 09:00 10/27/24 09:27 Ipratropium Nasal [place] 0.06% 15 Ml Bottle NASAL 2 spray BID GERA Administration Loperamide HCl 4 mg 10/26/24 11:30 10/27/24 09:16 Loperamide Hcl 2 Mg Capsule PO 4 mg Q12HR GERA Administration Midodrine 7.5 mg 10/26/24 08:00 10/27/24 09:25 Midodrine Hcl 2.5 Mg Tablet PO 7.5 mg TIDWM GERA Administration Multivitamins/Calcium 1 tablet 10/26/24 09:00 10/27/24 09:22 Therapeutic Multivitamins/Minerals Tab (*Bkc) PO 1 tablet QAM [facility] Administration Sotalol HCl 120 mg 10/26/24 09:00 10/27/24 09:26 Sotalol Hcl 40 Mg Tablet PO 120 mg Q12HR GERA Administration Spironolactone 12.5 mg 10/26/24 09:00 10/27/24 09:17 Spironolactone 12.5 Mg Tablet PO 12.5 mg DAILY GERA Administration Tamsulosin HCl 0.4 mg 10/26/24 09:00 10/27/24 09:16 Tamsulosin Hcl 0.4 Mg Capsule PO 0.4 mg DAILY GERA Administration Warfarin Sodium 6 mg 10/26/24 17:00 10/26/24 17:44 Warfarin (*Pbkc) 3 Mg Tablet PO 6 mg DAILY@1700 GERA Administration Radiology Results: ITS Impressions Chest X-Ray 10/25/24 23:29 IMPRESSION: Mild pulmonary vascular congestion with coarse interstitial lung markings. No focal infiltrate or effusion. Labs Labs: Laboratory Results - last 24 hr 10/27/24 04:06 WBC 4.0 L RBC 3.24 L Hgb 12.5 L Hct 36.4 L MCV 112.3 H MCH 38.6 H MCHC 34.3 RDW 15.0 H Plt Count 123 L MPV 10.7 H Immature Gran % (Auto) 0.5 Neut % (Auto) 55.3 Lymph % (Auto) 28.6 [place] % (Auto) 8.8 H Eos % (Auto) 6.0 H Baso % (Auto) 0.8 Lymph # (Auto) 1.14 [place] # (Auto) 0.4 Eos # (Auto) 0.2 Baso # (Auto) 0.0 Abs Immat Gran (auto) 0.02 Absolute Neuts (auto) 2.2 Absolute Nucleated RBC 0.000 Nucleated RBC % 0.0 % Immature Plt Fraction 4.3 PT 25.7 H INR 2.3 Sodium 139 Potassium 4.0 Chloride 103 Carbon Dioxide 30 Anion Gap 6 BUN 13 Creatinine 0.61 L Estim Creat Clear Calc 95 Estimated GFR > 60 Glucose 101 Calcium 8.5 Phosphorus 3.8 Magnesium 1.9 Total Bilirubin 0.9 AST 32 ALT 23 Alkaline Phosphatase 70 Total Protein 6.0 L Albumin 3.6
[2024-10-27] MEDS: WARFARIN (*PBKC) 3 MG TABLET 6 MG PO (18:18)
[2024-10-28] VITALS (18 sets, daily range): BP systolic 100–113; BP diastolic 57–60; PULSE 60–62; RESP 16–24; TEMP 36.3–36.6; O2SAT 95–100
[2024-10-28 04:42] LABS: Eosinophils Absolute Auto 0.3 K/mm3 (0-0.3); Eosinophils Percent Auto 7.1 % (0-4.4); Hematocrit 36.1 % (42.0-52.0); Hemoglobin 12.6 g/dL (14.0-18.0); Immature Granulocyte Absolute 0.01 K/mm3 (0.00-0.031); Immature Granulocyte Percent A 0.2 % (0-0.5); Lymphocytes Absolute Auto 1.23 K/mm3 (0.9-3.2); Lymphocytes Percent Auto 30.3 % (18.3-44.2); Mean Corpuscular HGB Conc 34.9 g/dl (32-36); Mean Corpuscular Hemoglobin 38.9 pg (26-34); Mean Corpuscular Volume 111.4 fl (80-100); Mean Platelet Volume 10.1 fl (7.4-10.4); Monocytes Absolute Auto 0.3 K/mm3 (0.1-0.6); Monocytes Percent Auto 8.1 % (2.6-8.5); Neutrophils Absolute Auto 2.2 K/mm3 (1.3-6.7); Neutrophils Percent Auto 53.3 % (45.5-73.1); Platelet Count Result 112 k/mm3 (150-375); Red Blood Count 3.24 M/mm3 (4.6-6.20); White Blood Count 4.1 K/mm3 (4.5-10.0)
[2024-10-28 04:53] LABS: Alanine Aminotransferase 20 U/L (6-50); Albumin Level 3.5 g/dL (3.5-5.1); Alkaline Phosphatase 72 U/L (38-126); Anion Gap 5 mmol/L (4-12); Aspartate Amino Transferase 30 U/L (17-59); Bilirubin,Total 0.9 mg/dL (0.2-1.3); Blood Urea Nitrogen 16 mg/dL (9-20); Calcium 8.5 mg/dL (8.4-10.2); Carbon Dioxide 30 mmol/L (22-30); Chloride 103 mmol/L (98-107); Estimated CRCL calculation 88 ml/min; Estimated Glomerular Filt Rate > 60; Glucose 95 mg/dL (65-110); INR 2.4; Magnesium 1.8 mg/dL (1.6-2.3); Phosphorus 3.7 mg/dL (2.5-4.5); Potassium 4.1 mmol/L (3.4-5.0); Prothrombin Time 26.8 Seconds (11.1-14.7); Sodium 138 mmol/L (137-145)
[2024-10-28] MEDS: LOPERAMIDE HCL 2 MG CAPSULE 4 MG PO (09:10)
[2024-10-28] MEDS: DICYCLOMINE HCL 10 MG CAPSULE 20 MG PO ×2 (09:10→17:53)
[2024-10-28] MEDS: SOTALOL HCL 40 MG TABLET 120 MG PO ×2 (09:10→20:04)
[2024-10-28] MEDS: MIDODRINE HCL 2.5 MG TABLET 7.5 MG PO ×3 (09:11→17:54)
[2024-10-28] MEDS: SPIRONOLACTONE 12.5 MG TABLET PO (09:11)
[2024-10-28] MEDS: CYANOCOBALAMIN 500 MCG TABLET PO (09:11)
[2024-10-28] MEDS: azaTHIOprine 50 MG TABLET 100 MG PO (09:11)
[2024-10-28] MEDS: allopurinoL 100 MG TABLET PO (09:11)
[2024-10-28] MEDS: ATORVASTATIN 20 MG TABLET PO (09:11)
[2024-10-28] MEDS: THERAPEUTIC MULTIVITAMINS/MINERALS TAB (*BKC) 1 TABLET PO (09:11)
[2024-10-28] MEDS: cloBAZam (*CRX) 10 MG TABLET 20 MG PO ×2 (09:12→20:05)
[2024-10-28] MEDS: TAMSULOSIN HCL 0.4 MG CAPSULE PO (09:12)
[2024-10-28] MEDS: IPRATROPIUM NASAL SPRAY 0.06% 15 ML BOTTLE 2 SPRAY NASAL (09:12)
[2024-10-28] MEDS: EMPAGLIFLOZIN 10 MG TABLET PO (09:12)
--- NOTE | 2024-10-28 09:53 | PC.NURSE ---
Updated [facility] transfer center nurse, LINDA Walters. No beds available at this time.
--- NOTE | 2024-10-28 12:41 | PM.PNCARD ---
Progress Note: A&P Assessment and Plan (1) Shockable cardiac rhythm detected by automated external defibrillator: Code(s): I49.9 - Cardiac arrhythmia, unspecified Status: Acute (2) Hyperlipidemia, unspecified: Qualifiers: Hyperlipidemia type: pure hypercholesterolemia Qualified Code(s): E78.00 - Pure hypercholesterolemia, unspecified Code(s): E78.5 - Hyperlipidemia, unspecified Status: Acute (3) Ventricular tachycardia: Code(s): I47.20 - Ventricular tachycardia, unspecified Status: Acute (4) Alcohol abuse: Code(s): F10.10 - Alcohol abuse, uncomplicated Status: Acute (5) Atrial fibrillation: Qualifiers: Atrial fibrillation type: paroxysmal Qualified Code(s): I48.0 - Paroxysmal atrial fibrillation Code(s): I48.91 - Unspecified atrial fibrillation Status: Acute (6) Acute on chronic systolic heart failure: Code(s): I50.23 - Acute on chronic systolic (congestive) heart failure Status: Acute Plan Assessment: -ICD shocks x2; no recurrence of shocks since admission-patient could not tolerate amiodarone in the past due to flare-up of his IBS, could not tolerate metoprolol -VT degenerated into VF x2 (based on ICD interrogation)- VT most likely from scar -Elevated troponin: 0.018, 0.022, 0.026 secondary to VT/VF is and ICD shocks; no chest pain -Acute on chronic Systolic heart failure with LVEF 30-35% (EF less than 20% in September,); reason wall motion abnormality with inferior/posterior hypokinesis to akinesis-on exam hypervolemic -Atrial fibrillation on chronic anticoagulation with Coumadin -Hyperlipidemia -Type 2 diabetes mellitus -Hypotension with systolic less than 100 during clinic visits-on midodrine as outpatient Plan: -Awaiting transfer to [place] for further management of scar VT -Continue sotalol -Continue Coumadin for anticoagulation for AFib -Continue atorvastatin -Continue midodrine -Give Lasix 40 mg p.o. daily -Guideline directed medical therapy for systolic heart failure- continue beta-tal, empagliflozin, spironolactone; add Entresto if patient tolerates -If patient has not had recent catheterization, then cardiac catheterization to evaluate coronaries Subjective Date/time seen: 10/28/24 12:41 Interval history: Reason For Visit: Defibrillator shock, VT HPI: 69-year-old male with systolic heart failure status post [employer] ICD (LVEF less than 20% by echo in September,; LVEF 35 to 40% by echo in 2022), history of VT/VF (follows with EP at [facility], patient refused increasing dose of sotalol and VT ablation in the past), ICD shocks in 2019 for VT/VF, type 2 diabetes mellitus, alcohol abuse, morbid obesity, hyperlipidemia, hypertension, AFib on chronic anticoagulation, irritable bowel syndrome, DJD presents for shocks discharged from his ICD (2 shocks around 8:00 p.m. last night). Device interrogation showed rhythm was VT degenerated into VF into circumstances that were treated with 1 successful shock each. No chest pain, shortness of breath, dizziness, lightheadedness, presyncope, syncope, nausea, emesis, diaphoresis either before or after his ICD shock. Workup: Platelets [id number], Hemoglobin 12.4 Troponin: 0.018, 0.022, 0.026 EKG: V paced rhythm Chest x-ray: Pulmonary vascular congestion with coarse interstitial lung markings Cardiac MRI in 2019: Infarct in the inferior and inferolateral lyles with hypokinesis Echo in 2022: LV EF 35-40% Echo in September, showed LV EF less than 20% Echo during this hospitalization: LVEF is severely depressed at 30-35%, regional wall motion abnormalities present-basal to apical posterior/inferior wall is hypokinetic to akinetic Interval history: Patient did not have any further shocks since admission. No chest pain, shortness of breath, nausea, abdominal pain. He was accepted in transfer to [facility] by Dr. 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 He is awaiting a bed for transfer. Patient is not happy with the situation and coated this morning open I am going to here . Review of Systems Review of Systems: Review of systems was performed and negative other than those mentioned in HPI Exam Narrative: General: Alert oriented x3, no acute distress Neck: Supple, no JVD Chest: Bilaterally clear to auscultation, no rales or rhonchi Cardiac: S1, S2 +, regular rate, regular rhythm, no murmurs or rubs Extremities: Bilateral lower extremity edema 1+, no skin rash Neurologic: Alert and oriented x3, no focal neurological deficits Objective Data Vital Signs Vital Signs: Vital Signs - 24 hr 10/27/24 14:00 10/27/24 16:00 10/27/24 16:00 Temperature 36.3 C L Pulse Rate 60 62 60 Respiratory Rate 12 Blood Pressure 118/60 Pulse Oximetry 97 Oxygen Delivery 10/27/24 16:00 10/27/24 18:00 10/27/24 20:00 Temperature 36.7 C Pulse Rate 60 116 H Respiratory Rate 18 Blood Pressure 108/57 L Pulse Oximetry 98 Oxygen Delivery Room Air 10/27/24 20:00 10/27/24 20:00 10/27/24 21:08 Temperature Pulse Rate 60 60 Respiratory Rate Blood Pressure Pulse Oximetry Oxygen Delivery Room Air 10/27/24 22:00 10/28/24 00:00 10/28/24 00:00 Temperature 36.3 C L Pulse Rate 60 62 Respiratory Rate 18 Blood Pressure 101/57 L Pulse Oximetry 96 Oxygen Delivery Room Air 10/28/24 00:00 10/28/24 02:00 10/28/24 03:47 Temperature 36.6 C Pulse Rate 60 60 62 Respiratory Rate 18 Blood Pressure 102/58 L Pulse Oximetry 96 Oxygen Delivery 10/28/24 04:00 10/28/24 04:00 10/28/24 05:51 Temperature Pulse Rate 60 60 Respiratory Rate Blood Pressure Pulse Oximetry Oxygen Delivery Room Air 10/28/24 08:00 10/28/24 08:00 10/28/24 08:00 Temperature 36.4 C Pulse Rate 60 60 Respiratory Rate 20 Blood Pressure 109/60 Pulse Oximetry 100 Oxygen Delivery Room Air 10/28/24 09:10 10/28/24 10:00 10/28/24 11:46 Temperature 36.5 C Pulse Rate 60 60 60 Respiratory Rate 24 H Blood Pressure 102/58 L Pulse Oximetry 95 Oxygen Delivery Intake/Output Intake/Output: Intake & Output 10/25/24 10/26/24 10/27/24 10/28/24 23:59 23:59 23:59 23:59 Intake Total 1440 2500 Output Total 1600 2000 1400 Balance -160 500 -1400 Meds/Results Medications: Active Medications Generic Name Dose Route Start Last Admin Trade Name Freq PRN Reason Stop Dose Admin Allopurinol 100 mg 10/26/24 09:00 10/28/24 09:11 Allopurinol 100 Mg Tablet PO 100 mg DAILY GERA Administration Atorvastatin Calcium 20 mg 10/26/24 09:00 10/28/24 09:11 Atorvastatin 20 Mg Tablet PO 20 mg DAILY GERA Administration Azathioprine 100 mg 10/26/24 09:00 10/28/24 09:11 Azathioprine 50 Mg Tablet PO 100 mg DAILY GERA Administration Bismuth Subsalicylate 262 mg 10/26/24 03:40 Bismuth Subsalicylate 262 Mg Chewable Tablet PO QID PRN upset stomach Clobazam 20 mg 10/26/24 09:00 10/28/24 09:12 Clobazam (*Crx) 10 Mg Tablet PO 20 mg Q12HR GERA Administration Clonazepam 1 mg 10/26/24 03:36 Clonazepam (*Crx) 0.5 Mg Tablet PO Q12H PRN axiety Cyanocobalamin 500 mcg 10/26/24 09:00 10/28/24 09:11 Cyanocobalamin 500 Mcg Tablet PO 500 mcg DAILY GERA Administration Dicyclomine HCl 20 mg 10/26/24 09:00 10/28/24 09:10 Dicyclomine Hcl 10 Mg Capsule PO 20 mg BID GERA Administration Empagliflozin 10 mg 10/26/24 09:00 10/28/24 09:12 Empagliflozin 10 Mg Tablet PO 10 mg QAM GERA Administration Ergocalciferol 50,000 units 10/26/24 09:00 10/26/24 09:27 Ergocalciferol 50,000 Units Capsule PO 50,000 units WEEKLY GERA Administration Ipratropium [place] 2 spray 10/26/24 09:00 10/28/24 09:12 Ipratropium Nasal [place] 0.06% 15 Ml Bottle NASAL 2 spray BID GERA Administration Loperamide HCl 4 mg 10/26/24 11:30 10/28/24 09:10 Loperamide Hcl 2 Mg Capsule PO 4 mg Q12HR GERA Administration Midodrine 7.5 mg 10/26/24 08:00 10/28/24 09:11 Midodrine Hcl 2.5 Mg Tablet PO 7.5 mg TIDWM GERA Administration Multivitamins/Calcium 1 tablet 10/26/24 09:00 10/28/24 09:11 Therapeutic Multivitamins/Minerals Tab (*Bkc) PO 1 tablet QAM GERA Administration Sotalol HCl 120 mg 10/26/24 09:00 10/28/24 09:10 Sotalol Hcl 40 Mg Tablet PO 120 mg Q12HR GERA Administration Spironolactone 12.5 mg 10/26/24 09:00 10/28/24 09:11 Spironolactone 12.5 Mg Tablet PO 12.5 mg DAILY GERA Administration Tamsulosin HCl 0.4 mg 10/26/24 09:00 10/28/24 09:12 Tamsulosin Hcl 0.4 Mg Capsule PO 0.4 mg DAILY GERA Administration Warfarin Sodium 6 mg 10/26/24 17:00 10/27/24 18:18 Warfarin (*Pbkc) 3 Mg Tablet PO 6 mg DAILY@1700 GERA Administration Radiology Results: ITS Impressions Chest X-Ray 10/25/24 23:29 IMPRESSION: Mild pulmonary vascular congestion with coarse interstitial lung markings. No focal infiltrate or effusion. Labs Labs: Laboratory Results - last 24 hr 10/28/24 04:35 WBC 4.1 L RBC 3.24 L Hgb 12.6 L Hct 36.1 L MCV 111.4 H MCH 38.9 H MCHC 34.9 RDW 15.0 H Plt Count 112 L MPV 10.1 Immature Gran % (Auto) 0.2 Neut % (Auto) 53.3 Lymph % (Auto) 30.3 [place] % (Auto) 8.1 Eos % (Auto) 7.1 H Baso % (Auto) 1.0 Lymph # (Auto) 1.23 [place] # (Auto) 0.3 Eos # (Auto) 0.3 Baso # (Auto) 0.0 Abs Immat Gran (auto) 0.01 Absolute Neuts (auto) 2.2 Absolute Nucleated RBC 0.000 Nucleated RBC % 0.0 PT 26.8 H INR 2.4 Sodium 138 Potassium 4.1 Chloride 103 Carbon Dioxide 30 Anion Gap 5 BUN 16 Creatinine 0.66 L Estim Creat Clear Calc 88 Estimated GFR > 60 Glucose 95 Calcium 8.5 Phosphorus 3.7 Magnesium 1.8 Total Bilirubin 0.9 AST 30 ALT 20 Alkaline Phosphatase 72 Total Protein 6.0 L Albumin 3.5
--- NOTE | 2024-10-28 14:36 | P.PNIM_ITS ---
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 of anticoagulants Status: Acute (4) Hyperlipidemia, unspecified: Qualifiers: Hyperlipidemia type: pure hypercholesterolemia Qualified Code(s): E78.00 - Pure hypercholesterolemia, unspecified Code(s): E78.5 - Hyperlipidemia, unspecified Status: Acute (5) Arrhythmia: Code(s): I49.9 - Cardiac arrhythmia, unspecified Status: Acute (6) 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: Code(s): E11.3299 - Type 2 diabetes mellitus with mild nonproliferative diabetic retinopathy without macular edema, unspecified eye Status: Acute (7) Crohn's disease: Qualifiers: Gastrointestinal tract location: unspecified location Digestive disease complication type: without complication Qualified Code(s): K50.90 - Crohn's disease, unspecified, without complications Code(s): K50.90 - Crohn's disease, unspecified, without complications Status: Acute (8) Other seizures: Code(s): G40.89 - Other seizures Status: Acute Plan Patient is a 69-year-old male who presents to the emergency department this evening stating that he has defibrillator shocked him twice last evening. Patient states this happened around 8:00 p.m.. He states that when the shocks happened he had no symptoms, specifically no chest pain or shortness of breath, no nausea or vomiting. Patient states that he has Dr. Casas as his echo vasc tech and that he has had this defibrillator placed in [facility]. Patient is currently denying any symptoms including chest pain or shortness of breath. Denies any recent URI illness. No additional symptoms or concerns at this time. An ED evaluation his vitals were stable. EKG showed paced rhythm at a rate of 66 beats per minute. Laboratory study revealed WBC of 4.1 hemoglobin 12.4 came panel was unrema rkable. LFTs were normal. Troponin was negative. Lipase was mildly elevated at 329. Chest x-ray with mild pulmonary vascular congestion with coarse interstitial lung markings. No focal infiltrate or effusion. ICD shocks: Interrogation of pacemaker device revealed VT/VF x2. Cardiology consultation. Echo 10/26/2024 with basal to apical posterior/inferior wall severely hypokinetic to akinetic. LVEF 30-35%. Patient has been plan to be transfer to [place] for EP evaluation. He has been accepted awaiting bed availability. No electrolyte abnormality noted on laboratory evaluation. 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 Prior to this he had dual-chamber defibrillator placed in 2019. 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 No new complaints. No chest pain or shortness of breath. Review of Systems Review of Systems: All systems reviewed & are unremarkable except as noted in HPI and below Exam Narrative: General: Alert, awake, afebrile, in no acute distress. HEENT: PERRL, no rhinorrhea, no post nasal drip, oropharynx clear. Neck: Trachea midline, no JVD, no lymphadenopathy. Cardiovascular: Regular rate and rhythm, no murmurs, rubs or gallops, no peripheral edema. Respiratory: Clear to auscultation bilaterally, no tachypnea, no wheezing, no rhonchi, no rubs, no respiratory distress. Abdomen: Soft, nontender, nondistended, no rebound, no guarding, no peritoneal signs. Musculoskeletal: No joint swelling or deformity, normal muscle tone. Skin: No rashes or petechia, no signs of infection. Psychiatric: Alert and oriented, normal behavior and judgment for situation. Neurological: Alert and oriented to person, place, and time. Follows all commands. No focal deficits, speech is clear and fluent. Objective Data Vital Signs Vital Signs: Vital Signs - 24 hr 10/27/24 16:00 10/27/24 16:00 10/27/24 16:00 Temperature 97.3 F L Pulse Rate 62 60 Respiratory Rate 12 Blood Pressure 118/60 Pulse Oximetry 97 Oxygen Delivery Room Air 10/27/24 18:00 10/27/24 20:00 10/27/24 20:00 Temperature 98.1 F Pulse Rate 60 116 H Respiratory Rate 18 Blood Pressure 108/57 L Pulse Oximetry 98 Oxygen Delivery Room Air 10/27/24 20:00 10/27/24 21:08 10/27/24 22:00 Temperature Pulse Rate 60 60 60 Respiratory Rate Blood Pressure Pulse Oximetry Oxygen Delivery 10/28/24 00:00 10/28/24 00:00 10/28/24 00:00 Temperature 97.3 F L Pulse Rate 62 60 Respiratory Rate 18 Blood Pressure 101/57 L Pulse Oximetry 96 Oxygen Delivery Room Air 10/28/24 02:00 10/28/24 03:47 10/28/24 04:00 Temperature 97.9 F Pulse Rate 60 62 Respiratory Rate 18 Blood Pressure 102/58 L Pulse Oximetry 96 Oxygen Delivery Room Air 10/28/24 04:00 10/28/24 05:51 10/28/24 08:00 Temperature 97.6 F Pulse Rate 60 60 60 Respiratory Rate 20 Blood Pressure 109/60 Pulse Oximetry 100 Oxygen Delivery 10/28/24 08:00 10/28/24 08:00 10/28/24 09:10 Temperature Pulse Rate 60 60 Respiratory Rate Blood Pressure Pulse Oximetry Oxygen Delivery Room Air 10/28/24 10:00 10/28/24 11:46 Temperature 97.7 F Pulse Rate 60 60 Respiratory Rate 24 H Blood Pressure 102/58 L Pulse Oximetry 95 Oxygen Delivery Intake/Output Intake/Output: Intake & Output 10/25/24 10/26/24 10/27/24 10/28/24 23:59 23:59 23:59 23:59 Intake Total 1440 2500 240 Output Total 1600 2000 1400 Balance -160 500 -1160 Meds/Results Medications: Active Medications Generic Name Dose Route Start Last Admin Trade Name Freq PRN Reason Stop Dose Admin Allopurinol 100 mg 10/26/24 09:00 10/28/24 09:11 Allopurinol 100 Mg Tablet PO 100 mg DAILY GERA Administration Atorvastatin Calcium 20 mg 10/26/24 09:00 10/28/24 09:11 Atorvastatin 20 Mg Tablet PO 20 mg DAILY GERA Administration Azathioprine 100 mg 10/26/24 09:00 10/28/24 09:11 Azathioprine 50 Mg Tablet PO 100 mg DAILY GERA Administration Bismuth Subsalicylate 262 mg 10/26/24 03:40 Bismuth Subsalicylate 262 Mg Chewable Tablet PO QID PRN upset stomach Clobazam 20 mg 10/26/24 09:00 10/28/24 09:12 Clobazam (*Crx) 10 Mg Tablet PO 20 mg Q12HR GERA Administration Clonazepam 1 mg 10/26/24 03:36 Clonazepam (*Crx) 0.5 Mg Tablet PO Q12H PRN axiety Cyanocobalamin 500 mcg 10/26/24 09:00 10/28/24 09:11 Cyanocobalamin 500 Mcg Tablet PO 500 mcg DAILY GERA Administration Dicyclomine HCl 20 mg 10/26/24 09:00 10/28/24 09:10 Dicyclomine Hcl 10 Mg Capsule PO 20 mg BID GERA Administration Empagliflozin 10 mg 10/26/24 09:00 10/28/24 09:12 Empagliflozin 10 Mg Tablet PO 10 mg QAM [facility]A Administration Ergocalciferol 50,000 units 10/26/24 09:00 10/26/24 09:27 Ergocalciferol 50,000 Units Capsule PO 50,000 units WEEKLY GERA Administration Ipratropium [place] 2 spray 10/26/24 09:00 10/28/24 09:12 Ipratropium Nasal [place] 0.06% 15 Ml Bottle NASAL 2 spray BID GERA Administration Loperamide HCl 4 mg 10/26/24 11:30 10/28/24 09:10 Loperamide Hcl 2 Mg Capsule PO 4 mg Q12HR GERA Administration Midodrine 7.5 mg 10/26/24 08:00 10/28/24 12:58 Midodrine Hcl 2.5 Mg Tablet PO 7.5 mg TIDWM GERA Administration Multivitamins/Calcium 1 tablet 10/26/24 09:00 10/28/24 09:11 Therapeutic Multivitamins/Minerals Tab (*Bkc) PO 1 tablet QAM GERA Administration Sotalol HCl 120 mg 10/26/24 09:00 10/28/24 09:10 Sotalol Hcl 40 Mg Tablet PO 120 mg Q12HR GERA Administration Spironolactone 12.5 mg 10/26/24 09:00 10/28/24 09:11 Spironolactone 12.5 Mg Tablet PO 12.5 mg DAILY GERA Administration Tamsulosin HCl 0.4 mg 10/26/24 09:00 10/28/24 09:12 Tamsulosin Hcl 0.4 Mg Capsule PO 0.4 mg DAILY GERA Administration Warfarin Sodium 6 mg 10/26/24 17:00 10/27/24 18:18 Warfarin (*Pbkc) 3 Mg Tablet PO 6 mg DAILY@1700 [facility] Administration Radiology Results: ITS Impressions Chest X-Ray 10/25/24 23:29 IMPRESSION: Mild pulmonary vascular congestion with coarse interstitial lung markings. No focal infiltrate or effusion. Labs Labs: Laboratory Results - last 24 hr 10/28/24 04:35 WBC 4.1 L RBC 3.24 L Hgb 12.6 L Hct 36.1 L MCV 111.4 H MCH 38.9 H MCHC 34.9 RDW 15.0 H Plt Count 112 L MPV 10.1 Immature Gran % (Auto) 0.2 Neut % (Auto) 53.3 Lymph % (Auto) 30.3 [place] % (Auto) 8.1 Eos % (Auto) 7.1 H Baso % (Auto) 1.0 Lymph # (Auto) 1.23 [place] # (Auto) 0.3 Eos # (Auto) 0.3 Baso # (Auto) 0.0 Abs Immat Gran (auto) 0.01 Absolute Neuts (auto) 2.2 Absolute Nucleated RBC 0.000 Nucleated RBC % 0.0 PT 26.8 H INR 2.4 Sodium 138 Potassium 4.1 Chloride 103 Carbon Dioxide 30 Anion Gap 5 BUN 16 Creatinine 0.66 L Estim Creat Clear Calc 88 Estimated GFR > 60 Glucose 95 Calcium 8.5 Phosphorus 3.7 Magnesium 1.8 Total Bilirubin 0.9 AST 30 ALT 20 Alkaline Phosphatase 72 Total Protein 6.0 L Albumin 3.5
[2024-10-28] MEDS: WARFARIN (*PBKC) 3 MG TABLET 6 MG PO (17:53)
[2024-10-29] VITALS (18 sets, daily range): BP systolic 97–109; BP diastolic 44–64; PULSE 59–80; RESP 18; TEMP 36.6–36.8; O2SAT 95–98
[2024-10-29 05:42] LABS: INR 2.1; Prothrombin Time 24.1 Seconds (11.1-14.7)
[2024-10-29 05:43] LABS: Anion Gap 5 mmol/L (4-12); Blood Urea Nitrogen 14 mg/dL (9-20); Calcium 9.1 mg/dL (8.4-10.2); Carbon Dioxide 33 mmol/L (22-30); Chloride 101 mmol/L (98-107); Estimated CRCL calculation 87 ml/min; Estimated Glomerular Filt Rate > 60; Glucose 94 mg/dL (65-110); Magnesium 1.8 mg/dL (1.6-2.3); Phosphorus 3.7 mg/dL (2.5-4.5); Potassium 4.1 mmol/L (3.4-5.0); Sodium 139 mmol/L (137-145)
[2024-10-29 06:01] LABS: Eosinophils Absolute Auto 0.2 K/mm3 (0-0.3); Eosinophils Percent Auto 5.1 % (0-4.4); Hematocrit 38.3 % (42.0-52.0); Hemoglobin 13.5 g/dL (14.0-18.0); Immature Granulocyte Absolute 0.01 K/mm3 (0.00-0.031); Immature Granulocyte Percent A 0.3 % (0-0.5); Immature Platelet Fraction Pct 4.9 % (0.9-11.2); Lymphocytes Absolute Auto 1.02 K/mm3 (0.9-3.2); Lymphocytes Percent Auto 25.8 % (18.3-44.2); Mean Corpuscular HGB Conc 35.2 g/dl (32-36); Mean Corpuscular Hemoglobin 39.6 pg (26-34); Mean Corpuscular Volume 112.3 fl (80-100); Mean Platelet Volume 10.9 fl (7.4-10.4); Monocytes Absolute Auto 0.4 K/mm3 (0.1-0.6); Monocytes Percent Auto 9.1 % (2.6-8.5); Neutrophils Absolute Auto 2.3 K/mm3 (1.3-6.7); Neutrophils Percent Auto 58.7 % (45.5-73.1); Platelet Count Result 116 k/mm3 (150-375); Red Blood Count 3.41 M/mm3 (4.6-6.20); Red Cell Distribution Width 15.1 % (11.5-14.5)
[2024-10-29 06:47] LABS: Platelet Estimate Decreased (Adequate)
[2024-10-29 06:48] LABS: Anisocytosis 1+; Macrocytosis 1+ (NORMAL); Ovalocytes 1+; Schistocytes None Seen
[2024-10-29] MEDS: SOTALOL HCL 40 MG TABLET 120 MG PO ×2 (09:50→20:47)
[2024-10-29] MEDS: THERAPEUTIC MULTIVITAMINS/MINERALS TAB (*BKC) 1 TABLET PO (09:51)
[2024-10-29] MEDS: SPIRONOLACTONE 12.5 MG TABLET PO (09:51)
[2024-10-29] MEDS: CYANOCOBALAMIN 500 MCG TABLET PO (09:51)
[2024-10-29] MEDS: allopurinoL 100 MG TABLET PO (09:51)
[2024-10-29] MEDS: EMPAGLIFLOZIN 10 MG TABLET PO (09:51)
[2024-10-29] MEDS: MIDODRINE HCL 2.5 MG TABLET 7.5 MG PO ×3 (09:51→18:30)
[2024-10-29] MEDS: TAMSULOSIN HCL 0.4 MG CAPSULE PO (09:51)
[2024-10-29] MEDS: azaTHIOprine 50 MG TABLET 100 MG PO (09:51)
[2024-10-29] MEDS: cloBAZam (*CRX) 10 MG TABLET 20 MG PO ×2 (09:51→20:47)
[2024-10-29] MEDS: LOPERAMIDE HCL 2 MG CAPSULE 4 MG PO ×2 (09:51→20:50)
[2024-10-29] MEDS: ATORVASTATIN 20 MG TABLET PO (09:51)
[2024-10-29] MEDS: DICYCLOMINE HCL 10 MG CAPSULE 20 MG PO ×2 (09:51→18:30)
[2024-10-29] MEDS: IPRATROPIUM NASAL SPRAY 0.06% 15 ML BOTTLE 2 SPRAY NASAL (09:52)
--- NOTE | 2024-10-29 10:08 | P.PNIM_ITS ---
Progress Note: A&P Assessment and Plan (1) Shockable cardiac rhythm detected by automated external defibrillator: Code(s): I49.9 - Cardiac arrhythmia, unspecified Status: Acute (2) Unspecified systolic (congestive) heart failure: Qualifiers: Heart failure chronicity: chronic Qualified Code(s): I50.22 - Chronic systolic (congestive) heart failure Code(s): I50.20 - Unspecified systolic (congestive) heart failure Status: Acute (3) prison (current) use of anticoagulants: Code(s): Z79.01 - rn long term care (current) use of anticoagulants Status: Acute (4) Hyperlipidemia, unspecified: Qualifiers: Hyperlipidemia type: pure hypercholesterolemia Qualified Code(s): E78.00 - Pure hypercholesterolemia, unspecified Code(s): E78.5 - Hyperlipidemia, unspecified Status: Acute (5) Arrhythmia: Code(s): I49.9 - Cardiac arrhythmia, unspecified Status: Acute (6) 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: Code(s): E11.3299 - Type 2 diabetes mellitus with mild nonproliferative diabetic retinopathy without macular edema, unspecified eye Status: Acute (7) Crohn's disease: Qualifiers: Gastrointestinal tract location: unspecified location Digestive disease complication type: without complication Qualified Code(s): K50.90 - Crohn's disease, unspecified, without complications Code(s): K50.90 - Crohn's disease, unspecified, without complications Status: Acute (8) Other seizures: Code(s): G40.89 - Other seizures Status: Acute Plan Patient is a 69-year-old male who presents to the emergency department this evening stating that he has defibrillator shocked him twice last evening. Patient states this happened around 8:00 p.m.. He states that when the shocks happened he had no symptoms, specifically no chest pain or shortness of breath, no nausea or vomiting. 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 Patient is currently denying any symptoms including chest pain or shortness of breath. Denies any recent URI illness. No additional symptoms or concerns at this time. An ED evaluation his vitals were stable. EKG showed paced rhythm at a rate of 66 beats per minute. Laboratory study revealed WBC of 4.1 hemoglobin 12.4 came panel was unrema rkable. LFTs were normal. Troponin was negative. Lipase was mildly elevated at 329. Chest x-ray with mild pulmonary vascular congestion with coarse interstitial lung markings. No focal infiltrate or effusion. ICD shocks: Interrogation of pacemaker device revealed VT/VF x2. Cardiology consultation. Echo 10/26/2024 with basal to apical posterior/inferior wall severely hypokinetic to akinetic. LVEF 30-35%. Patient has been plan to be transfer to [place] for EP evaluation. He has been accepted awaiting bed availability. No electrolyte abnormality noted on laboratory evaluation. 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 Prior to this he had dual-chamber defibrillator placed in 2019. 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 No new complaints. No chest pain or shortness of breath. Telemetry reviewed Review of Systems Review of Systems: All systems reviewed & are unremarkable except as noted in HPI and below Exam Narrative: General: Alert, awake, afebrile, in no acute distress. HEENT: PERRL, no rhinorrhea, no post nasal drip, oropharynx clear. Neck: Trachea midline, no JVD, no lymphadenopathy. Cardiovascular: Regular rate and rhythm, no murmurs, rubs or gallops, no peripheral edema. Respiratory: Clear to auscultation bilaterally, no tachypnea, no wheezing, no rhonchi, no rubs, no respiratory distress. Abdomen: Soft, nontender, nondistended, no rebound, no guarding, no peritoneal signs. Musculoskeletal: No joint swelling or deformity, normal muscle tone. Skin: No rashes or petechia, no signs of infection. Psychiatric: Alert and oriented, normal behavior and judgment for situation. Neurological: Alert and oriented to person, place, and time. Follows all commands. No focal deficits, speech is clear and fluent. Objective Data Vital Signs Vital Signs: Vital Signs - 24 hr 10/28/24 11:46 10/28/24 12:00 10/28/24 12:00 Temperature 97.7 F Pulse Rate 60 60 Respiratory Rate 24 H Blood Pressure 102/58 L Pulse Oximetry 95 Oxygen Delivery Room Air 10/28/24 14:00 10/28/24 16:00 10/28/24 16:00 Temperature 97.8 F Pulse Rate 60 60 60 Respiratory Rate 20 Blood Pressure 100/60 Pulse Oximetry 97 Oxygen Delivery 10/28/24 16:00 10/28/24 18:00 10/28/24 19:44 Temperature 97.5 F L Pulse Rate 60 60 Respiratory Rate 18 Blood Pressure 113/58 L Pulse Oximetry 97 Oxygen Delivery Room Air 10/28/24 20:00 10/28/24 20:00 10/28/24 20:04 Temperature Pulse Rate 62 61 Respiratory Rate Blood Pressure Pulse Oximetry Oxygen Delivery Room Air 10/28/24 22:31 10/28/24 23:38 10/28/24 23:57 Temperature 97.7 F Pulse Rate 60 60 Respiratory Rate 16 Blood Pressure 106/60 Pulse Oximetry 97 Oxygen Delivery Room Air 10/29/24 00:00 10/29/24 02:00 10/29/24 03:55 Temperature Pulse Rate 60 60 Respiratory Rate Blood Pressure Pulse Oximetry Oxygen Delivery Room Air 10/29/24 04:00 10/29/24 04:20 10/29/24 05:53 Temperature 97.8 F Pulse Rate 62 59 L 60 Respiratory Rate 18 Blood Pressure 107/58 L Pulse Oximetry 97 Oxygen Delivery 10/29/24 07:46 Temperature 98.2 F Pulse Rate 62 Respiratory Rate 18 Blood Pressure 109/55 L Pulse Oximetry 96 Oxygen Delivery Intake/Output Intake/Output: Intake & Output 10/26/24 10/27/24 10/28/24 10/29/24 23:59 23:59 23:59 23:59 Intake Total 1440 2500 1640 790 Output Total 1600 2000 4900 1400 Balance -160 500 -3260 -610 Meds/Results Medications: Active Medications Generic Name Dose Route Start Last Admin Trade Name Freq PRN Reason Stop Dose Admin Allopurinol 100 mg 10/26/24 09:00 10/29/24 09:51 Allopurinol 100 Mg Tablet PO 100 mg DAILY GERA Administration Atorvastatin Calcium 20 mg 10/26/24 09:00 10/29/24 09:51 Atorvastatin 20 Mg Tablet PO 20 mg DAILY GERA Administration Azathioprine 100 mg 10/26/24 09:00 10/29/24 09:51 Azathioprine 50 Mg Tablet PO 100 mg DAILY GERA Administration Bismuth Subsalicylate 262 mg 10/26/24 03:40 Bismuth Subsalicylate 262 Mg Chewable Tablet PO QID PRN upset stomach Clobazam 20 mg 10/26/24 09:00 10/29/24 09:51 Clobazam (*Crx) 10 Mg Tablet PO 20 mg Q12HR GERA Administration Clonazepam 1 mg 10/26/24 03:36 Clonazepam (*Crx) 0.5 Mg Tablet PO Q12H PRN axiety Cyanocobalamin 500 mcg 10/26/24 09:00 10/29/24 09:51 Cyanocobalamin 500 Mcg Tablet PO 500 mcg DAILY GERA Administration Dicyclomine HCl 20 mg 10/26/24 09:00 10/29/24 09:51 Dicyclomine Hcl 10 Mg Capsule PO 20 mg BID GERA Administration Empagliflozin 10 mg 10/26/24 09:00 10/29/24 09:51 Empagliflozin 10 Mg Tablet PO 10 mg QAM [facility] Administration Ergocalciferol 50,000 units 10/26/24 09:00 10/26/24 09:27 Ergocalciferol 50,000 Units Capsule PO 50,000 units WEEKLY [facility] Administration Ipratropium [place] 2 spray 10/26/24 09:00 10/29/24 09:52 Ipratropium Nasal [place] 0.06% 15 Ml Bottle NASAL 2 spray BID GERA Administration Loperamide HCl 4 mg 10/26/24 11:30 10/29/24 09:51 Loperamide Hcl 2 Mg Capsule PO 4 mg Q12HR [facility]ERA Administration Midodrine 7.5 mg 10/26/24 08:00 10/29/24 09:51 Midodrine Hcl 2.5 Mg Tablet PO 7.5 mg TIDWM [facility] Administration Multivitamins/Calcium 1 tablet 10/26/24 09:00 10/29/24 09:51 Therapeutic Multivitamins/Minerals Tab (*Bkc) PO 1 tablet QAM [facility] Administration Sotalol HCl 120 mg 10/26/24 09:00 10/29/24 09:50 Sotalol Hcl 40 Mg Tablet PO 120 mg Q12HR [facility]ERA Administration Spironolactone 12.5 mg 10/26/24 09:00 10/29/24 09:51 Spironolactone 12.5 Mg Tablet PO 12.5 mg DAILY GERA Administration Tamsulosin HCl 0.4 mg 10/26/24 09:00 10/29/24 09:51 Tamsulosin Hcl 0.4 Mg Capsule PO 0.4 mg DAILY [facility]ERA Administration Warfarin Sodium 6 mg 10/26/24 17:00 10/28/24 17:53 Warfarin (*Pbkc) 3 Mg Tablet PO 6 mg DAILY@1700 [facility] Administration Radiology Results: ITS Impressions Chest X-Ray 10/25/24 23:29 IMPRESSION: Mild pulmonary vascular congestion with coarse interstitial lung markings. No focal infiltrate or effusion. Labs Labs: Laboratory Results - last 24 hr 10/29/24 05:03 WBC 4.0 L RBC 3.41 L Hgb 13.5 L Hct 38.3 L MCV 112.3 H MCH 39.6 H MCHC 35.2 RDW 15.1 H Plt Count 116 L MPV 10.9 H Immature Gran % (Auto) 0.3 Neut % (Auto) 58.7 Lymph % (Auto) 25.8 [place] % (Auto) 9.1 H Eos % (Auto) 5.1 H Baso % (Auto) 1.0 Lymph # (Auto) 1.02 [place] # (Auto) 0.4 Eos # (Auto) 0.2 Baso # (Auto) 0.0 Abs Immat Gran (auto) 0.01 Absolute Neuts (auto) 2.3 Absolute Nucleated RBC 0.000 Nucleated RBC % 0.0 Platelet Estimate Decreased % Immature Plt Fraction 4.9 Anisocytosis 1+ Macrocytosis 1+ Ovalocytes 1+ Schistocytes None seen PT 24.1 H INR 2.1 Sodium 139 Potassium 4.1 Chloride 101 Carbon Dioxide 33 H Anion Gap 5 BUN 14 Creatinine 0.67 L Estim Creat Clear Calc 87 Estimated GFR > 60 Glucose 94 Calcium 9.1 Phosphorus 3.7 Magnesium 1.8 Albumin 4.0
[2024-10-29] MEDS: WARFARIN (*PBKC) 3 MG TABLET 6 MG PO (18:30)
[2024-10-30] VITALS (17 sets, daily range): BP systolic 98–109; BP diastolic 54–66; PULSE 59–84; RESP 16–20; TEMP 36.4–36.7; O2SAT 96–100
[2024-10-30 04:57] LABS: Basophils Percent Auto 0.5 % (0.2-1.2); Eosinophils Absolute Auto 0.2 K/mm3 (0-0.3); Eosinophils Percent Auto 5.7 % (0-4.4); Hematocrit 35.8 % (42.0-52.0); Hemoglobin 12.9 g/dL (14.0-18.0); Immature Granulocyte Absolute 0.02 K/mm3 (0.00-0.031); Immature Granulocyte Percent A 0.5 % (0-0.5); Lymphocytes Percent Auto 26.2 % (18.3-44.2); Mean Corpuscular Hemoglobin 39.7 pg (26-34); Mean Corpuscular Volume 110.2 fl (80-100); Mean Platelet Volume 10.7 fl (7.4-10.4); Monocytes Absolute Auto 0.3 K/mm3 (0.1-0.6); Monocytes Percent Auto 8.1 % (2.6-8.5); Neutrophils Absolute Auto 2.5 K/mm3 (1.3-6.7); Platelet Count Result 111 k/mm3 (150-375); Red Blood Count 3.25 M/mm3 (4.6-6.20); Red Cell Distribution Width 14.7 % (11.5-14.5); White Blood Count 4.2 K/mm3 (4.5-10.0)
[2024-10-30 05:08] LABS: Prothrombin Time 23.1 Seconds (11.1-14.7)
[2024-10-30 05:11] LABS: Albumin Level 3.7 g/dL (3.5-5.1); Anion Gap 9 mmol/L (4-12); Blood Urea Nitrogen 18 mg/dL (9-20); Calcium 8.5 mg/dL (8.4-10.2); Carbon Dioxide 27 mmol/L (22-30); Chloride 101 mmol/L (98-107); Estimated CRCL calculation 97 ml/min; Estimated Glomerular Filt Rate > 60; Glucose 163 mg/dL (65-110); Magnesium 1.8 mg/dL (1.6-2.3); Sodium 137 mmol/L (137-145)
[2024-10-30] MEDS: MIDODRINE HCL 2.5 MG TABLET 7.5 MG PO ×3 (08:24→16:48)
[2024-10-30] MEDS: allopurinoL 100 MG TABLET PO (08:26)
[2024-10-30] MEDS: ATORVASTATIN 20 MG TABLET PO (08:26)
[2024-10-30] MEDS: cloBAZam (*CRX) 10 MG TABLET 20 MG PO ×2 (08:27→20:42)
[2024-10-30] MEDS: DICYCLOMINE HCL 10 MG CAPSULE 20 MG PO ×2 (08:28→16:47)
[2024-10-30] MEDS: CYANOCOBALAMIN 500 MCG TABLET PO (08:28)
[2024-10-30] MEDS: LOPERAMIDE HCL 2 MG CAPSULE 4 MG PO ×2 (08:29→20:43)
[2024-10-30] MEDS: EMPAGLIFLOZIN 10 MG TABLET PO (08:29)
[2024-10-30] MEDS: SOTALOL HCL 40 MG TABLET 120 MG PO ×2 (08:31→20:43)
[2024-10-30] MEDS: SPIRONOLACTONE 12.5 MG TABLET PO (08:31)
[2024-10-30] MEDS: THERAPEUTIC MULTIVITAMINS/MINERALS TAB (*BKC) 1 TABLET PO (08:33)
[2024-10-30] MEDS: TAMSULOSIN HCL 0.4 MG CAPSULE PO (08:34)
[2024-10-30] MEDS: azaTHIOprine 50 MG TABLET 100 MG PO (08:34)
[2024-10-30] MEDS: IPRATROPIUM NASAL SPRAY 0.06% 15 ML BOTTLE 2 SPRAY NASAL ×2 (08:57→16:47)
--- NOTE | 2024-10-30 13:44 | PM.IMPN ---
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 Status: Acute (4) Hyperlipidemia, unspecified: Qualifiers: Hyperlipidemia type: pure hypercholesterolemia Qualified Code(s): E78.00 - Pure hypercholesterolemia, unspecified Code(s): E78.5 - Hyperlipidemia, unspecified Status: Acute (5) Arrhythmia: Code(s): I49.9 - Cardiac arrhythmia, unspecified Status: Acute (6) 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: Code(s): E11.3299 - Type 2 diabetes mellitus with mild nonproliferative diabetic retinopathy without macular edema, unspecified eye Status: Acute (7) Crohn's disease: Qualifiers: Gastrointestinal tract location: unspecified location Digestive disease complication type: without complication Qualified Code(s): K50.90 - Crohn's disease, unspecified, without complications Code(s): K50.90 - Crohn's disease, unspecified, without complications Status: Acute (8) Other seizures: Code(s): G40.89 - Other seizures Status: Acute Plan Patient is a 69-year-old male who presents to the emergency department this evening stating that he has defibrillator shocked him twice last evening. Patient states this happened around 8:00 p.m.. He states that when the shocks happened he had no symptoms, specifically no chest pain or shortness of breath, no nausea or vomiting. Patient states that he has Dr. Casas as his lock plater and that he has had this defibrillator placed in [facility]. Patient is currently denying any symptoms including chest pain or shortness of breath. Denies any recent URI illness. No additional symptoms or concerns at this time. An ED evaluation his vitals were stable. EKG showed paced rhythm at a rate of 66 beats per minute. Laboratory study revealed WBC of 4.1 hemoglobin 12.4 came panel was unremarkable. LFTs were normal. Troponin was negative. Lipase was mildly elevated at 329. Chest x-ray with mild pulmonary vascular congestion with coarse interstitial lung markings. No focal infiltrate or effusion. ICD shocks: Interrogation of pacemaker device revealed VT/VF x2. Cardiology consultation. Echo 10/26/2024 with basal to apical posterior/inferior wall severely hypokinetic to akinetic. LVEF 30-35%. Patient has been plan to be transfer to [facility] for EP evaluation. He has been accepted awaiting bed availability. No electrolyte abnormality noted on laboratory evaluation. 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 Prior to this he had dual-chamber defibrillator placed in 2019. 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 No new complaints. No chest pain or shortness of breath. Telemetry reviewed. Reports he does not want go to [facility] Review of Systems Review of Systems: All systems reviewed & are unremarkable except as noted in HPI and below Exam Narrative: General: Alert, awake, afebrile, in no acute distress. HEENT: PERRL, no rhinorrhea, no post nasal drip, oropharynx clear. Neck: Trachea midline, no JVD, no lymphadenopathy. Cardiovascular: Regular rate and rhythm, no murmurs, rubs or gallops, no peripheral edema. Respiratory: Clear to auscultation bilaterally, no tachypnea, no wheezing, no rhonchi, no rubs, no respiratory distress. Abdomen: Soft, nontender, nondistended, no rebound, no guarding, no peritoneal signs. Musculoskeletal: No joint swelling or deformity, normal muscle tone. Skin: No rashes or petechia, no signs of infection. Psychiatric: Alert and oriented, normal behavior and judgment for situation. Neurological: Alert and oriented to person, place, and time. Follows all commands. No focal deficits, speech is clear and fluent. Objective Data Vital Signs Vital Signs: Vital Signs - 24 hr 10/29/24 14:00 10/29/24 16:00 10/29/24 16:00 Temperature Pulse Rate 61 61 Respiratory Rate Blood Pressure Pulse Oximetry Oxygen Delivery Room Air 10/29/24 16:34 10/29/24 18:00 10/29/24 20:00 Temperature 98.2 F Pulse Rate 60 60 Respiratory Rate 18 Blood Pressure 105/53 L Pulse Oximetry 97 Oxygen Delivery Room Air 10/29/24 20:00 10/29/24 20:28 10/29/24 20:47 Temperature 98.1 F Pulse Rate 60 60 80 Respiratory Rate 18 Blood Pressure 97/44 L Pulse Oximetry 95 Oxygen Delivery 10/29/24 22:00 10/30/24 00:00 10/30/24 00:00 Temperature Pulse Rate 60 69 Respiratory Rate Blood Pressure Pulse Oximetry Oxygen Delivery Room Air 10/30/24 00:35 10/30/24 02:00 10/30/24 03:41 Temperature 98.0 F 98.1 F Pulse Rate 69 60 61 Respiratory Rate 18 18 Blood Pressure 108/66 107/59 L Pulse Oximetry 96 97 Oxygen Delivery 10/30/24 04:00 10/30/24 04:00 10/30/24 06:00 Temperature Pulse Rate 60 62 Respiratory Rate Blood Pressure Pulse Oximetry Oxygen Delivery Room Air 10/30/24 07:47 10/30/24 08:31 10/30/24 08:35 Temperature 97.8 F Pulse Rate 60 60 60 Respiratory Rate 16 Blood Pressure 98/54 L Pulse Oximetry 99 Oxygen Delivery 10/30/24 10:00 10/30/24 12:00 Temperature 97.6 F Pulse Rate 60 60 Respiratory Rate 16 Blood Pressure 103/57 L Pulse Oximetry 100 Oxygen Delivery Intake/Output Intake/Output: Intake & Output 10/27/24 10/28/24 10/29/24 10/30/24 23:59 23:59 23:59 23:59 Intake Total 2500 1640 1610 780 Output Total 1999 4900 1950 700 Balance 500 -0793 -253 80 Meds/Results Medications: Active Medications Generic Name Dose Route Start Last Admin Trade Name Freq PRN Reason Stop Dose Admin Allopurinol 100 mg 10/26/24 09:00 10/30/24 08:26 Allopurinol 100 Mg Tablet PO 100 mg DAILY GERA Administration Atorvastatin Calcium 20 mg 10/26/24 09:00 10/30/24 08:26 Atorvastatin 20 Mg Tablet PO 20 mg DAILY GERA Administration Azathioprine 100 mg 10/26/24 09:00 10/30/24 08:34 Azathioprine 50 Mg Tablet PO 100 mg DAILY GERA Administration Bismuth Subsalicylate 262 mg 10/26/24 03:40 Bismuth Subsalicylate 262 Mg Chewable Tablet PO QID PRN upset stomach Clobazam 20 mg 10/26/24 09:00 10/30/24 08:27 Clobazam (*Crx) 10 Mg Tablet PO 20 mg Q12HR GERA Administration Clonazepam 1 mg 10/26/24 03:36 Clonazepam (*Crx) 0.5 Mg Tablet PO Q12H PRN axiety Cyanocobalamin 500 mcg 10/26/24 09:00 10/30/24 08:28 Cyanocobalamin 500 Mcg Tablet PO 500 mcg DAILY GERA Administration Dicyclomine HCl 20 mg 10/26/24 09:00 10/30/24 08:28 Dicyclomine Hcl 10 Mg Capsule PO 20 mg BID GERA Administration Empagliflozin 10 mg 10/26/24 09:00 10/30/24 08:29 Empagliflozin 10 Mg Tablet PO 10 mg QAM GERA Administration Ergocalciferol 50,000 units 10/26/24 09:00 10/26/24 09:27 Ergocalciferol 50,000 Units Capsule PO 50,000 units WEEKLY [facility] Administration Ipratropium [place] 2 spray 10/26/24 09:00 10/30/24 08:57 Ipratropium Nasal [place] 0.06% 15 Ml Bottle NASAL 2 spray BID [facility] Administration Loperamide HCl 4 mg 10/26/24 11:30 10/30/24 08:29 Loperamide Hcl 2 Mg Capsule PO 4 mg Q12HR GERA Administration Midodrine 7.5 mg 10/26/24 08:00 10/30/24 12:35 Midodrine Hcl 2.5 Mg Tablet PO 11/04/24 23:59 7.5 mg TIDWM [facility]ERA Administration Multivitamins/Calcium 1 tablet 10/26/24 09:00 10/30/24 08:33 Therapeutic Multivitamins/Minerals Tab (*Bkc) PO 1 tablet QAM GERA Administration Sotalol HCl 120 mg 10/26/24 09:00 10/30/24 08:31 Sotalol Hcl 40 Mg Tablet PO 120 mg Q12HR GERA Administration Spironolactone 12.5 mg 10/26/24 09:00 10/30/24 08:31 Spironolactone 12.5 Mg Tablet PO 12.5 mg DAILY GERA Administration Tamsulosin HCl 0.4 mg 10/26/24 09:00 10/30/24 08:34 Tamsulosin Hcl 0.4 Mg Capsule PO 0.4 mg DAILY [facility]ERA Administration Warfarin Sodium 6 mg 10/26/24 17:00 10/29/24 18:30 Warfarin (*Pbkc) 3 Mg Tablet PO 6 mg DAILY@1700 GERA Administration Radiology Results: ITS Impressions Chest X-Ray 10/25/24 23:29 IMPRESSION: Mild pulmonary vascular congestion with coarse interstitial lung markings. No focal infiltrate or effusion. Labs Labs: Laboratory Results - last 24 hr 10/30/24 04:45 WBC 4.2 L RBC 3.25 L Hgb 12.9 L Hct 35.8 L MCV 110.2 H MCH 39.7 H MCHC 36.0 RDW 14.7 H Plt Count 111 L MPV 10.7 H Immature Gran % (Auto) 0.5 Neut % (Auto) 59.0 Lymph % (Auto) 26.2 [place] % (Auto) 8.1 Eos % (Auto) 5.7 H Baso % (Auto) 0.5 Lymph # (Auto) 1.10 [place] # (Auto) 0.3 Eos # (Auto) 0.2 Baso # (Auto) 0.0 Abs Immat Gran (auto) 0.02 Absolute Neuts (auto) 2.5 Absolute Nucleated RBC 0.000 Nucleated RBC % 0.0 PT 23.1 H INR 2.0 Sodium 137 Potassium 4.0 Chloride 101 Carbon Dioxide 27 Anion Gap 9 BUN 18 Creatinine 0.59 L Estim Creat Clear Calc 97 Estimated GFR > 60 Glucose 163 H Calcium 8.5 Phosphorus 4.0 Magnesium 1.8 Albumin 3.7
--- NOTE | 2024-10-30 15:35 | P.PNCA_ITS ---
Progress Note: A&P Assessment and Plan (1) Shockable cardiac rhythm detected by automated external defibrillator: Code(s): I49.9 - Cardiac arrhythmia, unspecified Status: Acute (2) Hyperlipidemia, unspecified: Qualifiers: Hyperlipidemia type: pure hypercholesterolemia Qualified Code(s): E78.00 - Pure hypercholesterolemia, unspecified Code(s): E78.5 - Hyperlipidemia, unspecified Status: Acute (3) Ventricular tachycardia: Code(s): I47.20 - Ventricular tachycardia, unspecified Status: Acute (4) Alcohol abuse: Code(s): F10.10 - Alcohol abuse, uncomplicated Status: Acute (5) Atrial fibrillation: Qualifiers: Atrial fibrillation type: paroxysmal Qualified Code(s): I48.0 - Paroxysmal atrial fibrillation Code(s): I48.91 - Unspecified atrial fibrillation Status: Acute (6) Acute on chronic systolic heart failure: Code(s): I50.23 - Acute on chronic systolic (congestive) heart failure Status: Acute Plan Assessment: -ICD shocks x2; no recurrence of shocks since admission - patient could not tolerate amiodarone in the past due to flare-up of his IBS, could not tolerate metoprolol -VT degenerated into VF x2 (based on ICD interrogation)- VT most likely from scar -Elevated troponin: 0.018, 0.022, 0.026 secondary to VT/VF is and ICD shocks; no chest pain -Chronic systolic heart failure with LVEF 30-35% (EF less than 20% in September,); reason wall motion abnormality with inferior/posterior hypokinesis to akinesis -Atrial fibrillation on chronic anticoagulation with Coumadin -Hyperlipidemia -Type 2 diabetes mellitus -Hypotension with systolic less than 100 during clinic visits - on midodrine as outpatient Plan: -Awaiting transfer to [place] for further management of scar VT. Patient tells me today that he initially did not want to undergo catheter ablation in the past because he thought the catheters would go through his penis. I clarified this misconception, and he states he is willing to consider it now. -Continue Sotalol -Continue Coumadin for anticoagulation for AFib -Continue Atorvastatin -Continue Midodrine -Guideline directed medical therapy for systolic heart failure - unable to optimize at this time due to need for midodrine. Subjective Date/time seen: 10/30/24 15:35 Interval history: Reason For Visit: Defibrillator shock, VT HPI: 69-year-old male with systolic heart failure status post [employer] ICD (LVEF less than 20% by echo in September,; LVEF 35 to 40% by echo in 2022), history of VT/VF (follows with EP at [facility], patient refused increasing dose of sotalol and VT ablation in the past), ICD shocks in 2019 for VT/VF, type 2 diabetes mellitus, alcohol abuse, morbid obesity, hyperlipidemia, hypertension, AFib on chronic anticoagulation, irritable bowel syndrome, DJD presents for shocks discharged from his ICD (2 shocks around 8:00 p.m. last night). Device interrogation showed rhythm was VT degenerated into VF into circumstances that were treated with 1 successful shock each. No chest pain, shortness of breath, dizziness, lightheadedness, presyncope, syncope, nausea, emesis, diaphoresis either before or after his ICD shock. Workup: Platelets 190068, Hemoglobin 12.4 Troponin: 0.018, 0.022, 0.026 EKG: V paced rhythm Chest x-ray: Pulmonary vascular congestion with coarse interstitial lung markings Cardiac MRI in 2019: Infarct in the inferior and inferolateral lyles with hypokinesis Echo in 2022: LV EF 35-40% Echo in September, showed LV EF less than 20% Echo during this hospitalization: LVEF is severely depressed at 30-35%, regional wall motion abnormalities present-basal to apical posterior/inferior wall is hypokinetic to akinetic Interval history: Denies chest pain. No further ICD shocks since admission. Awaiting transfer to [place]. Review of Systems Review of Systems: All systems reviewed & are unremarkable except as noted in HPI and below (HPI) Exam Const: General: no acute distress HENMT: Mouth: Yes moist mucous membranes Eyes: General: appearance normal, both eyes and all related structures Sclera: sclerae normal Resp: Effort & Inspection: normal respiratory effort Cardio: Rate: regular rate Rhythm: regular rhythm Skin: General skin exam: normal color Neuro: Speech: normal speech Psych: Affect: normal affect Objective Data Vital Signs Vital Signs: Vital Signs - 24 hr 10/29/24 16:00 10/29/24 16:00 10/29/24 16:34 Temperature 36.8 C Pulse Rate 61 60 Respiratory Rate 18 Blood Pressure 105/53 L Pulse Oximetry 97 Oxygen Delivery Room Air 10/29/24 18:00 10/29/24 20:00 10/29/24 20:00 Temperature Pulse Rate 60 60 Respiratory Rate Blood Pressure Pulse Oximetry Oxygen Delivery Room Air 10/29/24 20:28 10/29/24 20:47 10/29/24 22:00 Temperature 36.7 C Pulse Rate 60 80 60 Respiratory Rate 18 Blood Pressure 97/44 L Pulse Oximetry 95 Oxygen Delivery 10/30/24 00:00 10/30/24 00:00 10/30/24 00:35 Temperature 36.7 C Pulse Rate 69 69 Respiratory Rate 18 Blood Pressure 108/66 Pulse Oximetry 96 Oxygen Delivery Room Air 10/30/24 02:00 10/30/24 03:41 10/30/24 04:00 Temperature 36.7 C Pulse Rate 60 61 60 Respiratory Rate 18 Blood Pressure 107/59 L Pulse Oximetry 97 Oxygen Delivery 10/30/24 04:00 10/30/24 06:00 10/30/24 07:47 Temperature 36.6 C Pulse Rate 62 60 Respiratory Rate 16 Blood Pressure 98/54 L Pulse Oximetry 99 Oxygen Delivery Room Air 10/30/24 08:31 10/30/24 08:35 10/30/24 10:00 Temperature Pulse Rate 60 60 60 Respiratory Rate Blood Pressure Pulse Oximetry Oxygen Delivery 10/30/24 12:00 10/30/24 12:00 10/30/24 14:00 Temperature 36.4 C Pulse Rate 60 60 60 Respiratory Rate 16 Blood Pressure 103/57 L Pulse Oximetry 100 Oxygen Delivery Intake/Output Intake/Output: Intake & Output 10/27/24 10/28/24 10/29/24 10/30/24 23:59 23:59 23:59 23:59 Intake Total 2500 1640 1610 780 Output Total 1999 4900 1950 700 Balance 558 -1539 -268 80 Meds/Results Medications: Active Medications Generic Name Dose Route Start Last Admin Trade Name Freq PRN Reason Stop Dose Admin Allopurinol 100 mg 10/26/24 09:00 10/30/24 08:26 Allopurinol 100 Mg Tablet PO 100 mg DAILY [facility]ERA Administration Atorvastatin Calcium 20 mg 10/26/24 09:00 10/30/24 08:26 Atorvastatin 20 Mg Tablet PO 20 mg DAILY [facility] Administration Azathioprine 100 mg 10/26/24 09:00 10/30/24 08:34 Azathioprine 50 Mg Tablet PO 100 mg DAILY [facility] Administration Bismuth Subsalicylate 262 mg 10/26/24 03:40 Bismuth Subsalicylate 262 Mg Chewable Tablet PO QID PRN upset stomach Clobazam 20 mg 10/26/24 09:00 10/30/24 08:27 Clobazam (*Crx) 10 Mg Tablet PO 20 mg Q12HR [facility] Administration Clonazepam 1 mg 10/26/24 03:36 Clonazepam (*Crx) 0.5 Mg Tablet PO Q12H PRN axiety Cyanocobalamin 500 mcg 10/26/24 09:00 10/30/24 08:28 Cyanocobalamin 500 Mcg Tablet PO 500 mcg DAILY [facility] Administration Dicyclomine HCl 20 mg 10/26/24 09:00 10/30/24 08:28 Dicyclomine Hcl 10 Mg Capsule PO 20 mg BID [facility] Administration Empagliflozin 10 mg 10/26/24 09:00 10/30/24 08:29 Empagliflozin 10 Mg Tablet PO 10 mg QAM [facility] Administration Ergocalciferol 50,000 units 10/26/24 09:00 10/26/24 09:27 Ergocalciferol 50,000 Units Capsule PO 50,000 units WEEKLY [facility] Administration Ipratropium [place] 2 spray 10/26/24 09:00 10/30/24 08:57 Ipratropium Nasal [place] 0.06% 15 Ml Bottle NASAL 2 spray BID [facility] Administration Loperamide HCl 4 mg 10/26/24 11:30 10/30/24 08:29 Loperamide Hcl 2 Mg Capsule PO 4 mg Q12HR [facility] Administration Midodrine 7.5 mg 10/26/24 08:00 10/30/24 12:35 Midodrine Hcl 2.5 Mg Tablet PO 11/04/24 23:59 7.5 mg TIDWM [facility] Administration Multivitamins/Calcium 1 tablet 10/26/24 09:00 10/30/24 08:33 Therapeutic Multivitamins/Minerals Tab (*Bkc) PO 1 tablet QAM [facility] Administration Sotalol HCl 120 mg 10/26/24 09:00 10/30/24 08:31 Sotalol Hcl 40 Mg Tablet PO 120 mg Q12HR [facility] Administration Spironolactone 12.5 mg 10/26/24 09:00 10/30/24 08:31 Spironolactone 12.5 Mg Tablet PO 12.5 mg DAILY [facility] Administration Tamsulosin HCl 0.4 mg 10/26/24 09:00 10/30/24 08:34 Tamsulosin Hcl 0.4 Mg Capsule PO 0.4 mg DAILY [facility] Administration Warfarin Sodium 6 mg 10/26/24 17:00 10/29/24 18:30 Warfarin (*Pbkc) 3 Mg Tablet PO 6 mg DAILY@1700 [facility] Administration Radiology Results: ITS Impressions Chest X-Ray 10/25/24 23:29 IMPRESSION: Mild pulmonary vascular congestion with coarse interstitial lung markings. No focal infiltrate or effusion. Labs Labs: Laboratory Results - last 24 hr 10/30/24 04:45 WBC 4.2 L RBC 3.25 L Hgb 12.9 L Hct 35.8 L MCV 110.2 H MCH 39.7 H MCHC 36.0 RDW 14.7 H Plt Count 111 L MPV 10.7 H Immature Gran % (Auto) 0.5 Neut % (Auto) 59.0 Lymph % (Auto) 26.2 [place] % (Auto) 8.1 Eos % (Auto) 5.7 H Baso % (Auto) 0.5 Lymph # (Auto) 1.10 [place] # (Auto) 0.3 Eos # (Auto) 0.2 Baso # (Auto) 0.0 Abs Immat Gran (auto) 0.02 Absolute Neuts (auto) 2.5 Absolute Nucleated RBC 0.000 Nucleated RBC % 0.0 PT 23.1 H INR 2.0 Sodium 137 Potassium 4.0 Chloride 101 Carbon Dioxide 27 Anion Gap 9 BUN 18 Creatinine 0.59 L Estim Creat Clear Calc 97 Estimated GFR > 60 Glucose 163 H Calcium 8.5 Phosphorus 4.0 Magnesium 1.8 Albumin 3.7
[2024-10-30] MEDS: WARFARIN (*PBKC) 3 MG TABLET 6 MG PO (16:49)
[2024-10-31] VITALS (19 sets, daily range): BP systolic 96–120; BP diastolic 55–70; PULSE 60–62; RESP 16–20; TEMP 36.2–36.8; O2SAT 96–98
[2024-10-31 05:16] LABS: Basophils Percent Auto 0.8 % (0.2-1.2); Eosinophils Absolute Auto 0.2 K/mm3 (0-0.3); Eosinophils Percent Auto 5.7 % (0-4.4); Hematocrit 37.1 % (42.0-52.0); Hemoglobin 13.2 g/dL (14.0-18.0); Immature Granulocyte Absolute 0.01 K/mm3 (0.00-0.031); Immature Granulocyte Percent A 0.3 % (0-0.5); Immature Platelet Fraction Pct 5.1 % (0.9-11.2); Lymphocytes Percent Auto 30.8 % (18.3-44.2); Mean Corpuscular HGB Conc 35.6 g/dl (32-36); Mean Corpuscular Hemoglobin 39.9 pg (26-34); Mean Corpuscular Volume 112.1 fl (80-100); Mean Platelet Volume 11.2 fl (7.4-10.4); Monocytes Absolute Auto 0.3 K/mm3 (0.1-0.6); Monocytes Percent Auto 8.2 % (2.6-8.5); Neutrophils Absolute Auto 2.1 K/mm3 (1.3-6.7); Neutrophils Percent Auto 54.2 % (45.5-73.1); Platelet Count Result 123 k/mm3 (150-375); Red Blood Count 3.31 M/mm3 (4.6-6.20); Red Cell Distribution Width 14.9 % (11.5-14.5); White Blood Count 3.9 K/mm3 (4.5-10.0)
[2024-10-31 05:22] LABS: INR 2.2; Prothrombin Time 24.9 Seconds (11.1-14.7)
[2024-10-31 05:32] LABS: Albumin Level 3.9 g/dL (3.5-5.1); Anion Gap 6 mmol/L (4-12); Blood Urea Nitrogen 14 mg/dL (9-20); Calcium 9.2 mg/dL (8.4-10.2); Carbon Dioxide 31 mmol/L (22-30); Chloride 102 mmol/L (98-107); Estimated CRCL calculation 92 ml/min; Estimated Glomerular Filt Rate > 60; Glucose 99 mg/dL (65-110); Magnesium 1.9 mg/dL (1.6-2.3); Phosphorus 3.7 mg/dL (2.5-4.5); Sodium 139 mmol/L (137-145)
[2024-10-31 05:44] LABS: Platelet Estimate Decreased (Adequate)
[2024-10-31 05:45] LABS: Anisocytosis 1+; Macrocytosis 1+ (NORMAL); Schistocytes None Seen
[2024-10-31 05:46] LABS: Ovalocytes 1+
[2024-10-31] MEDS: azaTHIOprine 50 MG TABLET 100 MG PO (08:33)
[2024-10-31] MEDS: DICYCLOMINE HCL 10 MG CAPSULE 20 MG PO ×2 (08:33→16:56)
[2024-10-31] MEDS: SOTALOL HCL 40 MG TABLET 120 MG PO ×2 (08:34→20:30)
[2024-10-31] MEDS: LOPERAMIDE HCL 2 MG CAPSULE 4 MG PO ×2 (08:34→20:29)
[2024-10-31] MEDS: ATORVASTATIN 20 MG TABLET PO (08:35)
[2024-10-31] MEDS: MIDODRINE HCL 2.5 MG TABLET 7.5 MG PO ×3 (08:35→16:56)
[2024-10-31] MEDS: EMPAGLIFLOZIN 10 MG TABLET PO (08:35)
[2024-10-31] MEDS: IPRATROPIUM NASAL SPRAY 0.06% 15 ML BOTTLE 2 SPRAY NASAL ×2 (08:36→16:57)
[2024-10-31] MEDS: THERAPEUTIC MULTIVITAMINS/MINERALS TAB (*BKC) 1 TABLET PO (08:36)
[2024-10-31] MEDS: allopurinoL 100 MG TABLET PO (08:36)
[2024-10-31] MEDS: cloBAZam (*CRX) 10 MG TABLET 20 MG PO ×2 (08:36→20:29)
[2024-10-31] MEDS: CYANOCOBALAMIN 500 MCG TABLET PO (08:37)
[2024-10-31] MEDS: SPIRONOLACTONE 12.5 MG TABLET PO (08:37)
[2024-10-31] MEDS: TAMSULOSIN HCL 0.4 MG CAPSULE PO (08:37)
--- NOTE | 2024-10-31 12:55 | P.PNIM_ITS ---
Progress Note: A&P Assessment and Plan (1) Shockable cardiac rhythm detected by automated external defibrillator: Code(s): I49.9 - Cardiac arrhythmia, unspecified Status: Acute (2) Unspecified systolic (congestive) heart failure: Qualifiers: Heart failure chronicity: chronic Qualified Code(s): I50.22 - Chronic systolic (congestive) heart failure Code(s): I50.20 - Unspecified systolic (congestive) heart failure Status: Acute (3) USP (current) use of anticoagulants: Code(s): Z79.01 - intermediate designer (current) use of anticoagulants Status: Acute (4) Hyperlipidemia, unspecified: Qualifiers: Hyperlipidemia type: pure hypercholesterolemia Qualified Code(s): E78.00 - Pure hypercholesterolemia, unspecified Code(s): E78.5 - Hyperlipidemia, unspecified Status: Acute (5) Arrhythmia: Code(s): I49.9 - Cardiac arrhythmia, unspecified Status: Acute (6) 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: Code(s): E11.3299 - Type 2 diabetes mellitus with mild nonproliferative diabetic retinopathy without macular edema, unspecified eye Status: Acute (7) Crohn's disease: Qualifiers: Gastrointestinal tract location: unspecified location Digestive disease complication type: without complication Qualified Code(s): K50.90 - Crohn's disease, unspecified, without complications Code(s): K50.90 - Crohn's disease, unspecified, without complications Status: Acute (8) Other seizures: Code(s): G40.89 - Other seizures Status: Acute Plan Patient is a 69-year-old male who presents to the emergency department this evening stating that he has defibrillator shocked him twice last evening. Patient states this happened around 8:00 p.m.. He states that when the shocks happened he had no symptoms, specifically no chest pain or shortness of breath, no nausea or vomiting. Patient states that he has Dr. Casas as his jordan worker and that he has had this defibrillator placed in [facility]. Patient is currently denying any symptoms including chest pain or shortness of breath. Denies any recent URI illness. No additional symptoms or concerns at this time. An ED evaluation his vitals were stable. EKG showed paced rhythm at a rate of 66 beats per minute. Laboratory study revealed WBC of 4.1 hemoglobin 12.4 came panel was unrema rkable. LFTs were normal. Troponin was negative. Lipase was mildly elevated at 329. Chest x-ray with mild pulmonary vascular congestion with coarse interstitial lung markings. No focal infiltrate or effusion. ICD shocks: Interrogation of pacemaker device revealed VT/VF x2. Cardiology consultation. Echo 10/26/2024 with basal to apical posterior/inferior wall severely hypokinetic to akinetic. LVEF 30-35%. Patient has been plan to be transfer to [place] for EP evaluation. He has been accepted awaiting bed availability. No electrolyte abnormality noted on laboratory evaluation. 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 Prior to this he had dual-chamber defibrillator placed in 2018. 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 Crohn's disease Seizure disorder History of LV thrombus in the past Chronic immunosuppressive therapy for chronic Crohn's disease Type 2 diabetes mellitus Chronic hypotension on midodrine DVT prophylaxis on warfarin Code status modified Subjective Date/time seen: 10/31/24 12:55 Interval history: Reason For Visit: Defibrillator shock, VT HPI: 69-year-old male with systolic heart failure status post [employer] ICD (LVEF less than 20% by echo in September,; LVEF 35 to 40% by echo in 2022), history of VT/VF (follows with EP at [facility], patient refused increasing dose of sotalol and VT ablation in the past), ICD shocks in 2019 for VT/VF, type 2 diabetes mellitus, alcohol abuse, morbid obesity, hyperlipidemia, hypertension, AFib on chronic anticoagulation, irritable bowel syndrome, DJD presents for shocks discharged from his ICD (2 shocks around 8:00 p.m. last night). Device interrogation showed rhythm was VT degenerated into VF into circumstances that were treated with 1 successful shock each. No chest pain, shortness of breath, dizziness, lightheadedness, presyncope, syncope, nausea, emesis, diaphoresis either before or after his ICD shock. Workup: Platelets [id number], Hemoglobin 12.4 Troponin: 0.018, 0.022, 0.026 EKG: V paced rhythm Chest x-ray: Pulmonary vascular congestion with coarse interstitial lung markings Cardiac MRI in 2019: Infarct in the inferior and inferolateral lyles with hypokinesis Echo in 2022: LV EF 35-40% Echo in September, showed LV EF less than 20% Echo during this hospitalization: LVEF is severely depressed at 30-35%, regional wall motion abnormalities present-basal to apical posterior/inferior wall is hypokinetic to akinetic Interval history: Denies chest pain. No further ICD shocks since admission. Awaiting transfer to [place]. Exam Narrative: AF 97.5 113/64 60 18 98% ra General: Alert, awake, afebrile, in no acute distress. HEENT: PERRL, no rhinorrhea, no post nasal drip, oropharynx clear. Neck: Trachea midline, no JVD, no lymphadenopathy. Cardiovascular: Regular rate and rhythm, no murmurs, rubs or gallops, no peripheral edema. Respiratory: Clear to auscultation bilaterally, no tachypnea, no wheezing, no rhonchi, no rubs, no respiratory distress. Abdomen: Soft, nontender, nondistended, no rebound, no guarding, no peritoneal signs. Musculoskeletal: No joint swelling or deformity, normal muscle tone. Skin: No rashes or petechia, no signs of infection. Psychiatric: Alert and oriented, normal behavior and judgment for situation. Neurological: Alert and oriented to person, place, and time. Follows all commands. No focal deficits, speech is clear and fluent. Objective Data Vital Signs Vital Signs: Vital Signs - 24 hr 10/30/24 14:00 10/30/24 16:00 10/30/24 16:00 Temperature 97.9 F Pulse Rate 60 59 L 60 Respiratory Rate 20 Blood Pressure 105/55 L Pulse Oximetry 99 Oxygen Delivery 10/30/24 19:55 10/30/24 20:00 10/30/24 20:00 Temperature 97.6 F Pulse Rate 84 60 Respiratory Rate 18 Blood Pressure 109/62 Pulse Oximetry 97 Oxygen Delivery Room Air 10/30/24 20:43 10/30/24 22:00 10/31/24 00:00 Temperature Pulse Rate 62 61 Respiratory Rate Blood Pressure Pulse Oximetry Oxygen Delivery Room Air 10/31/24 00:00 10/31/24 00:54 10/31/24 02:00 Temperature 97.7 F Pulse Rate 60 60 60 Respiratory Rate 20 Blood Pressure 120/70 Pulse Oximetry 98 Oxygen Delivery 10/31/24 04:00 10/31/24 04:00 10/31/24 04:19 Temperature 97.8 F Pulse Rate 60 60 Respiratory Rate 20 Blood Pressure 105/60 Pulse Oximetry 98 Oxygen Delivery Room Air 10/31/24 06:00 10/31/24 07:58 10/31/24 08:15 Temperature 97.2 F L Pulse Rate 60 60 60 Respiratory Rate 20 Blood Pressure 96/61 L Pulse Oximetry 98 Oxygen Delivery 10/31/24 08:34 10/31/24 10:00 10/31/24 10:33 Temperature Pulse Rate 60 57 L Respiratory Rate Blood Pressure Pulse Oximetry Oxygen Delivery Room Air 10/31/24 11:49 Temperature 97.5 F L Pulse Rate 60 Respiratory Rate 18 Blood Pressure 113/64 Pulse Oximetry 98 Oxygen Delivery Intake/Output Intake/Output: Intake & Output 10/28/24 10/29/24 10/30/24 10/31/24 23:59 23:59 23:59 23:59 Intake Total 1640 1610 1420 240 Output Total 4900 1950 1300 1600 Balance -3260 -340 120 -1360 Meds/Results Medications: Active Medications Generic Name Dose Route Start Last Admin Trade Name Freq PRN Reason Stop Dose Admin Allopurinol 100 mg 10/26/24 09:00 10/31/24 08:36 Allopurinol 100 Mg Tablet PO 100 mg DAILY GERA Administration Atorvastatin Calcium 20 mg 10/26/24 09:00 10/31/24 08:35 Atorvastatin 20 Mg Tablet PO 20 mg DAILY GERA Administration Azathioprine 100 mg 10/26/24 09:00 10/31/24 08:33 Azathioprine 50 Mg Tablet PO 100 mg DAILY GERA Administration Bismuth Subsalicylate 262 mg 10/26/24 03:40 Bismuth Subsalicylate 262 Mg Chewable Tablet PO QID PRN upset stomach Clobazam 20 mg 10/26/24 09:00 10/31/24 08:36 Clobazam (*Crx) 10 Mg Tablet PO 20 mg Q12HR GERA Administration Clonazepam 1 mg 10/26/24 03:36 Clonazepam (*Crx) 0.5 Mg Tablet PO Q12H PRN axiety Cyanocobalamin 500 mcg 10/26/24 09:00 10/31/24 08:37 Cyanocobalamin 500 Mcg Tablet PO 500 mcg DAILY [facility] Administration Dicyclomine HCl 20 mg 10/26/24 09:00 10/31/24 08:33 Dicyclomine Hcl 10 Mg Capsule PO 20 mg BID GERA Administration Empagliflozin 10 mg 10/26/24 09:00 10/31/24 08:35 Empagliflozin 10 Mg Tablet PO 10 mg QAM [facility] Administration Ergocalciferol 50,000 units 10/26/24 09:00 10/26/24 09:27 Ergocalciferol 50,000 Units Capsule PO 50,000 units WEEKLY [facility] Administration Ipratropium [place] 2 spray 10/26/24 09:00 10/31/24 08:36 Ipratropium Nasal [place] 0.06% 15 Ml Bottle NASAL 2 spray BID [facility] Administration Loperamide HCl 4 mg 10/26/24 11:30 10/31/24 08:34 Loperamide Hcl 2 Mg Capsule PO 4 mg Q12HR [facility] Administration Midodrine 7.5 mg 10/26/24 08:00 10/31/24 11:44 Midodrine Hcl 2.5 Mg Tablet PO 11/04/24 23:59 7.5 mg TIDWM [facility] Administration Multivitamins/Calcium 1 tablet 10/26/24 09:00 10/31/24 08:36 Therapeutic Multivitamins/Minerals Tab (*Bkc) PO 1 tablet QAM [facility] Administration Sotalol HCl 120 mg 10/26/24 09:00 10/31/24 08:34 Sotalol Hcl 40 Mg Tablet PO 120 mg Q12HR [facility] Administration Spironolactone 12.5 mg 10/26/24 09:00 10/31/24 08:37 Spironolactone 12.5 Mg Tablet PO 12.5 mg DAILY [facility] Administration Tamsulosin HCl 0.4 mg 10/26/24 09:00 10/31/24 08:37 Tamsulosin Hcl 0.4 Mg Capsule PO 0.4 mg DAILY [facility] Administration Warfarin Sodium 6 mg 10/26/24 17:00 10/30/24 16:49 Warfarin (*Pbkc) 3 Mg Tablet PO 6 mg DAILY@1700 [facility] Administration Radiology Results: ITS Impressions Chest X-Ray 10/25/24 23:29 IMPRESSION: Mild pulmonary vascular congestion with coarse interstitial lung markings. No focal infiltrate or effusion. Labs Labs: Laboratory Results - last 24 hr 10/31/24 04:36 WBC 3.9 L RBC 3.31 L Hgb 13.2 L Hct 37.1 L MCV 112.1 H MCH 39.9 H MCHC 35.6 RDW 14.9 H Plt Count 123 L MPV 11.2 H Immature Gran % (Auto) 0.3 Neut % (Auto) 54.2 Lymph % (Auto) 30.8 [place] % (Auto) 8.2 Eos % (Auto) 5.7 H Baso % (Auto) 0.8 Lymph # (Auto) 1.20 [place] # (Auto) 0.3 Eos # (Auto) 0.2 Baso # (Auto) 0.0 Abs Immat Gran (auto) 0.01 Absolute Neuts (auto) 2.1 Absolute Nucleated RBC 0.000 Nucleated RBC % 0.0 Platelet Estimate Decreased % Immature Plt Fraction 5.1 Anisocytosis 1+ Macrocytosis 1+ Ovalocytes 1+ Schistocytes None seen PT 24.9 H INR 2.2 Sodium 139 Potassium 4.0 Chloride 102 Carbon Dioxide 31 H Anion Gap 6 BUN 14 Creatinine 0.63 L Estim Creat Clear Calc 92 Estimated GFR > 60 Glucose 99 Calcium 9.2 Phosphorus 3.7 Magnesium 1.9 Albumin 3.9
[2024-10-31] MEDS: WARFARIN (*PBKC) 3 MG TABLET 6 MG PO (16:55)
--- NOTE | 2024-10-31 18:19 | P.TS_ITS ---
Transfer Discharge Sum: Prov Provider Date of admission: 10/26/24 00:14 Primary care physician: Willie Zimmerman MD Admitting clinician: Chayo Bryant MD Consults: 10/25/24 Consult to Physician Routine Comment: Consulting Provider: Han Hartley Reason for consultation: D fib shocked x2, VT, Pt of Dr. Casas Has provider been notified: Yes DS: Admitting Diagnosis Discharge Date 10/31/24 Admitting Diagnosis ICD Shock DS: Discharge Diagnosis Discharge Diagnosis (1) Shockable cardiac rhythm detected by automated external defibrillator: Code(s): I49.9 - Cardiac arrhythmia, unspecified Status: Acute (2) Unspecified systolic (congestive) heart failure: Qualifiers: Heart failure chronicity: chronic Qualified Code(s): I50.22 - Chronic systolic (congestive) heart failure Code(s): I50.20 - Unspecified systolic (congestive) heart failure Status: Acute (3) MCC (current) use of anticoagulants: Code(s): Z79.01 - terminal clerk (current) use of anticoagulants Status: Acute (4) Hyperlipidemia, unspecified: Qualifiers: Hyperlipidemia type: pure hypercholesterolemia Qualified Code(s): E78.00 - Pure hypercholesterolemia, unspecified Code(s): E78.5 - Hyperlipidemia, unspecified Status: Acute (5) Arrhythmia: Code(s): I49.9 - Cardiac arrhythmia, unspecified Status: Acute (6) 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: Code(s): E11.3299 - Type 2 diabetes mellitus with mild nonproliferative diabetic retinopathy without macular edema, unspecified eye Status: Acute (7) Crohn's disease: Qualifiers: Digestive disease complication type: without complication Gastrointestinal tract location: unspecified location Qualified Code(s): K50.90 - Crohn's disease, unspecified, without complications Code(s): K50.90 - Crohn's disease, unspecified, without complications Status: Acute (8) Other seizures: Code(s): G40.89 - Other seizures Status: Acute Transfer Discharge Sum: Med Medications Active and Home Medications: Home Medications atorvastatin 20 mg tablet 20 mg PO DAILY 08/05/20 [History Confirmed 10/26/24] clonazepam 1 mg tablet 1 mg PO Q12H PRN axiety 08/05/20 [History Confirmed 10/26/24] cyanocobalamin (vitamin B-12) 500 mcg tablet 500 mcg PO DAILY 09/09/21 [History Confirmed 10/26/24] infliximab-abda 100 mg intravenous solution 100 mg IV [id number] 02/14/23 [History Confirmed 10/26/24] bismuth subsalicylate 262 mg/15 mL oral suspension 2 mg PO QID PRN Diarrhea 03/17/23 [History Confirmed 10/26/24] clobazam 10 mg tablet 20 mg PO BID 06/15/23 [History Confirmed 10/26/24] sotalol 120 mg tablet 120 mg PO BID 07/22/23 [History Confirmed 10/26/24] tamsulosin 0.4 mg capsule 0.4 mg PO DAILY #90 caps 08/15/23 [Rx Confirmed 10/26/24] allopurinol 100 mg tablet 100 mg PO DAILY #90 tabs 07/06/24 [Rx Confirmed 10/26/24] ipratropium bromide 42 mcg (0.06 %) nasal spray 2 spray intranasal BID #15 mL 08/23/24 [Rx Confirmed 10/26/24] Multivitamin And Mineral 1 tablet PO DAILY 10/26/24 [History Confirmed 10/26/24] azathioprine 50 mg tablet 100 mg PO DAILY 10/26/24 [History Confirmed 10/26/24] bismuth subsalicylate 262 mg chewable tablet (Pepto-Bismol) 1 tablet PO QID PRN upset stomach 10/26/24 [History Confirmed 10/26/24] dicyclomine 10 mg capsule 20 mg PO BID 10/26/24 [History Confirmed 10/26/24] empagliflozin 10 mg tablet (Jardiance) 10 mg PO QAM 10/26/24 [History Confirmed 10/26/24] ergocalciferol (vitamin D2) 1,250 mcg (50,000 unit) capsule 50,000 unit PO WEEKLY 10/26/24 [History Confirmed 10/26/24] midodrine 2.5 mg tablet 7.5 mg PO TIDWM 10/26/24 [History Confirmed 10/26/24] spironolactone 25 mg tablet 12.5 mg PO DAILY 10/26/24 [History Confirmed ] warfarin 4 mg tablet 6 mg PO DAILY 10/26/24 [History Confirmed 10/26/24] Active Medications Allopurinol (Allopurinol 100 Mg Tablet) 100 mg PO DAILY [facility] Last Admin: 10/31/24 08:36 Dose: 100 mg Atorvastatin Calcium (Atorvastatin 20 Mg Tablet) 20 mg PO DAILY [facility] Last Admin: 10/31/24 08:35 Dose: 20 mg Azathioprine (Azathioprine 50 Mg Tablet) 100 mg PO DAILY [facility] Last Admin: 10/31/24 08:33 Dose: 100 mg Bismuth Subsalicylate (Bismuth Subsalicylate 262 Mg Chewable Tablet) 262 mg PO QID PRN PRN Reason: upset stomach Clobazam (Clobazam (*Crx) 10 Mg Tablet) 20 mg PO Q12HR [facility] Last Admin: 10/31/24 08:36 Dose: 20 mg Clonazepam (Clonazepam (*Crx) 0.5 Mg Tablet) 1 mg PO Q12H PRN PRN Reason: axiety Cyanocobalamin (Cyanocobalamin 500 Mcg Tablet) 500 mcg PO DAILY [facility] Last Admin: 10/31/24 08:37 Dose: 500 mcg Dicyclomine HCl (Dicyclomine Hcl 10 Mg Capsule) 20 mg PO BID [facility] Last Admin: 10/31/24 16:56 Dose: 20 mg Empagliflozin (Empagliflozin 10 Mg Tablet) 10 mg PO QAM [facility] Last Admin: 10/31/24 08:35 Dose: 10 mg Ergocalciferol (Ergocalciferol 50,000 Units Capsule) 50,000 units PO WEEKLY [facility] Last Admin: 10/26/24 09:27 Dose: 50,000 units Ipratropium [place] (Ipratropium Nasal [place] 0.06% 15 Ml Bottle) 2 spray NASAL BID [facility] Last Admin: 10/31/24 16:57 Dose: 2 spray Loperamide HCl (Loperamide Hcl 2 Mg Capsule) 4 mg PO Q12HR [facility] Last Admin: 10/31/24 08:34 Dose: 4 mg Midodrine (Midodrine Hcl 2.5 Mg Tablet) 7.5 mg PO TIDWM [facility] Stop: 11/04/24 23:59 Last Admin: 10/31/24 16:56 Dose: 7.5 mg Multivitamins/Calcium (Therapeutic Multivitamins/Minerals Tab (*Bkc)) 1 tablet PO QAM [facility] Last Admin: 10/31/24 08:36 Dose: 1 tablet Sotalol HCl (Sotalol Hcl 40 Mg Tablet) 120 mg PO Q12HR [facility] Last Admin: 10/31/24 08:34 Dose: 120 mg Spironolactone (Spironolactone 12.5 Mg Tablet) 12.5 mg PO DAILY [facility] Last Admin: 10/31/24 08:37 Dose: 12.5 mg Tamsulosin HCl (Tamsulosin Hcl 0.4 Mg Capsule) 0.4 mg PO DAILY [facility] Last Admin: 10/31/24 08:37 Dose: 0.4 mg Warfarin Sodium (Warfarin (*Pbkc) 3 Mg Tablet) 6 mg PO DAILY@1700 [facility] Last Admin: 10/31/24 16:55 Dose: 6 mg Transfer Discharge Sum: Hosp Hospital Course Hospital course: Дмитрий Hernandes is a 69 year old male who presents to the emergency department stating that he has defibrillator shocked him twice last evening. Please see H&P for details. He had no symptoms prior to the shock. In the ED, his vitals were stable. EKG showed paced rhythm at a rate of 66 beats per minute. Laboratory study revealed WBC of 4.1, Hgb 12.4 and plt count low at 118K. Chemistry panel was unremarkable. LFTs were normal. Troponin was negative x3. Lipase was mildly elevated at 329. Chest x-ray with mild pulmonary vascular congestion with coarse interstitial lung markings. No focal infiltrate or effusion. ICD interrogation of pacemaker device revealed VT/VF x2. Cardiology consultation. Echo 10/26/2024 with basal to apical posterior/inferior wall severely hypokinetic to akinetic. LVEF 30-35%. [place] patient should be transferred for EP evaluation. Arrangements were made and patient was transferred on 10/31/24 Time Spent with Patient Time attestation: Total time spent providing and/or coordinating transfer services: 34 minutes Total time spent: Greater than 30 minutes Exam Narrative: AF 97.5 113/64 60 18 98% ra Gen - NARD Chest - CTA bilaterally, nml RR CV - RRR S1/S2. Tele showing brief run NSVT Abd - Soft, NT/ND, Positive BS Ext - No pedal edema Psych - Nml mood and affect Skin - Warm and dry DS: Data Data Completed and Pending Labs on day of discharge: Labs from last 24 hours 10/31/24 04:36 WBC 3.9 L RBC 3.31 L Hgb 13.2 L Hct 37.1 L MCV 112.1 H MCH 39.9 H MCHC 35.6 RDW 14.9 H Plt Count 123 L MPV 11.2 H Immature Gran % (Auto) 0.3 Neut % (Auto) 54.2 Lymph % (Auto) 30.8 [place] % (Auto) 8.2 Eos % (Auto) 5.7 H Baso % (Auto) 0.8 Lymph # (Auto) 1.20 [place] # (Auto) 0.3 Eos # (Auto) 0.2 Baso # (Auto) 0.0 Abs Immat Gran (auto) 0.01 Absolute Neuts (auto) 2.1 Absolute Nucleated RBC 0.000 Nucleated RBC % 0.0 Platelet Estimate Decreased % Immature Plt Fraction 5.1 Anisocytosis 1+ Macrocytosis 1+ Ovalocytes 1+ Schistocytes None seen PT 24.9 H INR 2.2 Sodium 139 Potassium 4.0 Chloride 102 Carbon Dioxide 31 H Anion Gap 6 BUN 14 Creatinine 0.63 L Estim Creat Clear Calc 92 Estimated GFR > 60 Glucose 99 Calcium 9.2 Phosphorus 3.7 Magnesium 1.9 Albumin 3.9
--- NOTE | 2024-10-31 21:30 | PC.NURSE ---
Patient transferred at this time to [facility] per [facility]. Patient A&O x3. All personal belongings sent with patient. Patient verbalized understanding. Call placed to Daughter, Lalitha, but telephone number not in service.
--- NOTE | 2024-10-31 22:41 | PC.NURSE ---
Call placed to daughter, Lalitha, daughter made aware of patient's transfer and verbalized understanding.
== END 2024-10-31 21:30 | disposition short-term general hospital (02) | DRG 309 ==
LOC: ANHED 10-26 00:13 → ANHIMU 10-26 01:38
PROVIDERS: Emergency Medicine; Internal Medicine; Nurse Practitioner; Admitting Provider Internal Medicine; Emergency Provider Emergency Medicine; PCP Family Medicine; Visit Provider Internal Medicine
DX: I47.20 Ventricular tachycardia, unspecified (principal); D84.821 Immunodeficiency due to drugs; K50.90 Crohn's disease, unspecified, without complications; I50.22 Chronic systolic (congestive) heart failure; I49.9 Cardiac arrhythmia, unspecified; I48.91 Unspecified atrial fibrillation; I95.89 Other hypotension; E11.319 Type 2 diabetes mellitus with unspecified diabetic retinopathy without macular edema; E53.8 Deficiency of other specified B group vitamins; E78.5 Hyperlipidemia, unspecified; E66.01 Morbid (severe) obesity due to excess calories; M17.0 Bilateral primary osteoarthritis of knee; G40.909 Epilepsy, unspecified, not intractable, without status epilepticus; G60.0 Hereditary motor and sensory neuropathy; F32.5 Major depressive disorder, single episode, in full remission; I69.398 Other sequelae of cerebral infarction; Z79.01 Long term (current) use of anticoagulants; Z95.810 Presence of automatic (implantable) cardiac defibrillator
CPT/HCPCS: 36415; 71045; 80053; 80069; 83690; 83735; 84100; 84484; 85025; 85055; 85610; 85730; 93005; 97161; 97165; 97535; 99285; A9270; C8929; Q9957